=== PATIENT | male | born 1995 | race Caucasian/White ===

== ENCOUNTER 2024-04-16 14:17 | Emergency (ER) | payer OTHER ==
--- NOTE | 2024-04-16 14:43 | ED ---
General Adult HPI - General Source: patient, RN notes reviewed Mode of arrival: ambulatory Limitations: no limitations <Dagmar Calvo - Last Filed: 04/16/24 14:41> <Carlos Bean - Last Filed: 04/16/24 17:38> - General Chief complaint: Recheck/Abnormal Lab/Rx Stated complaint: Chest pain,Detox issue Time Seen by Provider: 04/16/24 14:41 - History of Present Illness Initial comments: Quick Note: This is a 28-year-old male who presents to the emergency department for concerns of problems related to detox. Patient used methadone for a long period of time and 36 hours ago he was started on Suboxone. He since had chest pain, states that he does not feel well, and has not been able to sleep. Patient is worried he may be having a reaction to the Suboxone and that they may have started him on it too soon. (Dagmar Calvo) Dictation was produced using [employer]elli[employer] dictation software. please excuse any grammatical, word or spelling errors. Chief Complaint: 28-year-old male presents emergency department with insomnia and malaise History of Present Illness: Patient 28-year-old male he seen a recovery clinic and was taken off methadone placed on Suboxone. Patient states that he feels horrible. States that he has vague complaints of malaise and feeling of impending doom. Patient does take Klonopin daily. He has been on Klonopin for several years. Patient has no pain complaints. The ROS documented in this emergency department record has been reviewed and confirmed by me. Those systems with pertinent positive or negative responses have been documented in the HPI. All other systems are other negative and/or noncontributory. (Carlos Bean) - Related Data Allergies Allergy/AdvReac Type Severity Reaction Status Date / Time No Known Allergies Allergy Verified 04/16/24 15:15 Review of Systems ROS Other: All systems not noted in ROS Statement are negative. <Dagmar Calvo - Last Filed: 04/16/24 14:41> ROS Other: All systems not noted in ROS Statement are negative. <Carlos Bean - Last Filed: 04/16/24 17:38> ROS Statement: Those systems with pertinent positive or pertinent negative responses have been documented in the HPI. General Exam <Dagmar Calvo - Last Filed: 04/16/24 14:41> <Carlos Bean - Last Filed: 04/16/24 17:38> - General Exam Comments Initial Comments: Visual Physical Exam Vital signs reviewed General: Well-appearing, nontoxic, no acute distress. Head: Normocephalic, atraumatic Eyes: PERRLA, EOMI ENT: Airway patent Chest: Nonlabored breathing Skin: No visual rash, normal skin tone Neuro: Alert and oriented 3 Musculoskeletal: No gross abnormalities (Dagmar Calvo) PHYSICAL EXAM: General Impression: Alert and oriented x3, not in acute distress HEENT: Normocephalic atraumatic, extra-ocular movements intact, pupils equal and reactive to light bilaterally, mucous membranes moist. Cardiovascular: Heart regular rate and rhythm Chest: Able to complete full sentences, no retractions, no tachypnea Abdomen: abdomen soft, non-tender, non-distended, no organomegaly Musculoskeletal: Pulses present and equal in all extremities, no peripheral edema Motor: no focal deficits noted Neurological: CN II-XII grossly intact, no focal motor or sensory deficits noted Skin: diffuse piloerection (Carlos Bean) Course Vital Signs 04/16/24 15:11 Temperature 98.5 F Pulse Rate 96 Respiratory 20 Rate Blood Pressure 112/76 O2 Sat by Pulse 99 Oximetry Medical Decision Making <Dagmar Calvo - Last Filed: 04/16/24 14:41> - Lab Data Result diagrams: 04/16/24 16:29 04/16/24 16:29 <Carlos Bean - Last Filed: 04/16/24 17:38> - Medical Decision Making I performed the QuickNote portion of this chart. Signed Dagmar Calvo PA-C. (Dagmar Calvo) Was pt. sent in by a medical professional or institution ([facility]ANETTE Westbrook, PERFORMANCE MANAGER, urgent care, hospital, or usp...) When possible be specific @ -No Did you speak to anyone other than the patient for history (EMS, parent, family, police, friend...)? What history was obtained from this source @ -No Did you review nursing and triage notes (agree or disagree)? Why? @ -I reviewed and agree with nursing and triage notes Were old charts reviewed (outside hosp., previous admission, EMS record, old EKG, old radiological studies, urgent care reports/EKG's, usp records)? Report findings @ -No old charts were reviewed Differential Diagnosis (chest pain, altered mental status, abdominal pain women, abdominal pain men, vaginal bleeding, musculoskeletal, weakness, fever, dyspnea, syncope, headache, dizziness, GI bleed, back pain, seizure, CVA, palpatations, mental health)? @ -Differential Weakness: Hypoglycemia, shock, sepsis, hyponatremia, anemia, infection, MT, ETOH, adverse medicine reaction, overdose, stroke, this is not meant to be an all-inclusive list. EKG interpreted by me (3pts min.). @ -See above X-rays interpreted by me (1pt min.). @ -Chest x-ray shows no acute processes. CT interpreted by me (1pt min.). @ -None done U/S interpreted by me (1pt. min.). @ -None done What testing was considered but not performed or refused? (CT, X-rays, U/S, labs)? Why? @ -None What meds were considered but not given or refused? Why? @ -None Did you discuss the management of the patient with other professionals (professionals i.e. , PA, PERFORMANCE MANAGER, lab, RT, psych nurse, secondary social studies teacher, helium arc welder, teacher, light armored vehicle officer, senior case manager)? Give summary @ -No Was smoking cessation discussed for >3mins.? @ -No Was critical care preformed (if so, how long)? @ -No Were there social determinants of health that impacted care today? How? (Homelessness, low income, unemployed, alcoholism, drug addiction, transportation, low edu. Level, literacy, decrease access to med. care, [facility], rehab)? @ -No Was there de-escalation of care discussed even if they declined (Discuss DNR or withdrawal of care, Hospice)? DNR status @ -No What co-morbidities impacted this encounter? (DM, HTN, Smoking, COPD, CAD, Cancer, CVA, ARF, Chemo, Hep., AIDS, mental health diagnosis, sleep apnea, morbid obesity)? @ -None Was patient admitted / discharged? Hospital course, mention meds given and route, prescriptions, significant lab abnormalities, going to OR and other pertinent info. @ -28-year-old male presents emergency department opiate withdrawals. Vital signs stable. Physical examination shows well-appearing male. Patient in no acute distress. Laboratory evaluation is unremarkable. Treated with 2 mg of Ativan. States that his symptoms feel improved. Patient told to follow-up with his methadone/Suboxone clinic for further care. He is encouraged to be admitted to [facility] for more assistance. Undiagnosed new problem with uncertain prognosis? @ -No Drug Therapy requiring intensive monitoring for toxicity (Heparin, Nitro, Insulin, Cardizem)? @ -No Were any procedures done? @ -No Diagnosis/symptom? Acute, or Chronic, or Acute on Chronic? Uncomplicated (without systemic symptoms) or Complicated (systemic symptoms)? @ -Opiate withdrawal Side effects of treatment? @ -No Exacerbation, Progression, or Severe Exacerbation? @ -No Poses a threat to life or bodily function? How? (Chest pain, [place], [place], pneumonia, PE, COPD, DKA, ARF, appy, cholecystitis, CVA, Diverticulitis, Homicidal, Suicidal, threat to staff... and all critical care pts) @ -No (Carlos Bean) - Lab Data Lab Results 04/16/24 04/16/24 04/16/24 Range/Units 16:29 16:29 16:29 WBC 9.2 (3.8-10.6) k/uL RBC 5.28 (4.30-5.90) m/uL Hgb 15.3 (13.0-17.5) gm/dL Hct 47.0 (39.0-53.0) % MCV 89.0 (80.0-100.0) fL MCH 29.0 (25.0-35.0) pg MCHC 32.5 (31.0-37.0) g/dL RDW 12.2 (11.5-15.5) % Plt Count 231 (150-450) k/uL MPV 9.0 Neutrophils % 66 % Lymphocytes % 26 % Monocytes % 6 % Eosinophils % 0 % Basophils % 0 % Neutrophils # 6.1 (1.3-7.7) k/uL Lymphocytes # 2.4 (1.0-4.8) k/uL Monocytes # 0.5 (0-1.0) k/uL Eosinophils # 0.0 (0-0.7) k/uL Basophils # 0.0 (0-0.2) k/uL PT 11.6 (10.0-12.5) sec INR 1.1 (<1.2) APTT 26.0 (22.0-30.0) sec Sodium (137-145) mmol/L Potassium (3.5-5.1) mmol/L Chloride (98-107) mmol/L Carbon Dioxide (22-30) mmol/L Anion Gap mmol/L BUN (9-20) mg/dL Creatinine (0.66-1.25) mg/dL Est GFR (CKD-EPI)AfAm (>60 ml/min/1.73 sqM) Est GFR (CKD-EPI)NonAf (>60 ml/min/1.73 sqM) Glucose (74-99) mg/dL Calcium (8.4-10.2) mg/dL Magnesium (1.6-2.3) mg/dL Total Bilirubin (0.2-1.3) mg/dL AST (17-59) U/L ALT (4-49) U/L Alkaline Phosphatase (38-126) U/L Troponin I (0.000-0.034) ng/mL Total Protein (6.3-8.2) g/dL Albumin (3.5-5.0) g/dL Lipase (23-300) U/L Urine Opiates Screen Not Detected (NotDetected) Ur Oxycodone Screen Not Detected (NotDetected) Urine Methadone Screen Not Detected (NotDetected) Ur Barbiturates Screen Not Detected (NotDetected) U Tricyclic Antidepress Not Detected (NotDetected) Ur Phencyclidine Scrn Not Detected (NotDetected) Ur Amphetamines Screen Not Detected (NotDetected) U Methamphetamines Scrn Not Detected (NotDetected) U Benzodiazepines Scrn Detected H (NotDetected) Urine Cocaine Screen Not Detected (NotDetected) U Marijuana (THC) Screen Detected H (NotDetected) Serum Alcohol mg/dL 04/16/24 04/16/24 Range/Units 16:29 16:29 WBC (3.8-10.6) k/uL RBC (4.30-5.90) m/uL Hgb (13.0-17.5) gm/dL Hct (39.0-53.0) % MCV (80.0-100.0) fL MCH (25.0-35.0) pg MCHC (31.0-37.0) g/dL RDW (11.5-15.5) % Plt Count (150-450) k/uL MPV Neutrophils % % Lymphocytes % % Monocytes % % Eosinophils % % Basophils % % Neutrophils # (1.3-7.7) k/uL Lymphocytes # (1.0-4.8) k/uL Monocytes # (0-1.0) k/uL Eosinophils # (0-0.7) k/uL Basophils # (0-0.2) k/uL PT (10.0-12.5) sec INR (<1.2) APTT (22.0-30.0) sec Sodium 140 (137-145) mmol/L Potassium 3.9 (3.5-5.1) mmol/L Chloride 102 (98-107) mmol/L Carbon Dioxide 33 H (22-30) mmol/L Anion Gap 5 mmol/L BUN 9 (9-20) mg/dL Creatinine 0.62 L (0.66-1.25) mg/dL Est GFR (CKD-EPI)AfAm >90 (>60 ml/min/1.73 sqM) Est GFR (CKD-EPI)NonAf >90 (>60 ml/min/1.73 sqM) Glucose 95 (74-99) mg/dL Calcium 9.7 (8.4-10.2) mg/dL Magnesium 2.2 (1.6-2.3) mg/dL Total Bilirubin 1.3 (0.2-1.3) mg/dL AST 20 (17-59) U/L ALT 14 (4-49) U/L Alkaline Phosphatase 63 (38-126) U/L Troponin I <0.012 (0.000-0.034) ng/mL Total Protein 7.3 (6.3-8.2) g/dL Albumin 4.9 (3.5-5.0) g/dL Lipase 102 (23-300) U/L Urine Opiates Screen (NotDetected) Ur Oxycodone Screen (NotDetected) Urine Methadone Screen (NotDetected) Ur Barbiturates Screen (NotDetected) U Tricyclic Antidepress (NotDetected) Ur Phencyclidine Scrn (NotDetected) Ur Amphetamines Screen (NotDetected) U Methamphetamines Scrn (NotDetected) U Benzodiazepines Scrn (NotDetected) Urine Cocaine Screen (NotDetected) U Marijuana (THC) Screen (NotDetected) Serum Alcohol <10 mg/dL Disposition <Dagmar Calvo - Last Filed: 04/16/24 14:41> Is patient prescribed a controlled substance at d/c from ED?: No Time of Disposition: 17:38 <Carlos Bean - Last Filed: 04/16/24 17:38> Clinical Impression: Opiate withdrawal Disposition: HOME SELF-CARE Condition: Good Instructions (If sedation given, give patient instructions): Opioid Withdrawal (ED) Referrals: Jermaine Torres MD [Primary Care Provider] - 1-2 days
[2024-04-16 15:54] VITALS: TEMP 98.5
[2024-04-16] MEDS: LORazepam 2 MG/ML INJ IM STA (16:38)
[2024-04-16 16:50] LABS: Basophils % (A) 0 %; Eosinophils % (A) 0 %; HGB 15.3 gm/dL (13.0-17.5); Lymphocytes # (A) 2.4 k/uL (1.0-4.8); Lymphocytes % (A) 26 %; MCHC 32.5 g/dL (31.0-37.0); Monocytes # (A) 0.5 k/uL (0-1.0); Monocytes % (A) 6 %; Neutrophils # (A) 6.1 k/uL (1.3-7.7); Neutrophils % (A) 66 %; Platelet Count 231 k/uL (150-450); RBC 5.28 m/uL (4.30-5.90); RDW 12.2 % (11.5-15.5); WBC 9.2 k/uL (3.8-10.6)
--- NOTE | 2024-04-16 16:51 | XR ---
EXAMINATION TYPE: XR chest 2V DATE OF EXAM: 04/16/2024 COMPARISON: None INDICATION: Chest pain TECHNIQUE: Frontal and lateral views of the chest are obtained. FINDINGS: The heart size is normal. The pulmonary vasculature is normal. The lungs are clear. IMPRESSION: 1. No acute pulmonary process.
[2024-04-16 16:57] LABS: ALT 14 U/L (4-49); AST 20 U/L (17-59); African American GFR (CKD) >90 (>60 ml/min/1.73 sqM); Albumin 4.9 g/dL (3.5-5.0); Alcohol <10 mg/dL; Alkaline Phosphatase 63 U/L (38-126); Anion Gap 5 mmol/L; Blood Urea Nitrogen 9 mg/dL (9-20); Calcium 9.7 mg/dL (8.4-10.2); Carbon Dioxide 33 mmol/L (22-30); Chloride 102 mmol/L (98-107); Glucose 95 mg/dL (74-99); Lipase 102 U/L (23-300); Magnesium 2.2 mg/dL (1.6-2.3); Non-African American GFR(CKD) >90 (>60 ml/min/1.73 sqM); Potassium 3.9 mmol/L (3.5-5.1); Sodium 140 mmol/L (137-145); Total Bilirubin 1.3 mg/dL (0.2-1.3); Total Protein 7.3 g/dL (6.3-8.2)
[2024-04-16 16:58] LABS: Amphetamine Screen,Urine Not Detected (NotDetected); Barbiturate Screen,Urine Not Detected (NotDetected); Benzodiazepines Screen,Urine Detected (NotDetected); Cocaine Screen,Urine Not Detected (NotDetected); Methadone Screen, Urine Not Detected (NotDetected); Opiate Screen,Urine Not Detected (NotDetected); Oxycodone Screen, Urine Not Detected (NotDetected); Phencyclidine Screen,Urine Not Detected (NotDetected); Tricyclic Antidepressant,Urine Not Detected (NotDetected); Urn Cannabinoid Scrn Detected (NotDetected)
[2024-04-16 17:01] LABS: INR 1.1 (<1.2); Prothrombin Time 11.6 sec (10.0-12.5)
[2024-04-16 18:23] VITALS: BP 131/82; PULSE 67; RESP 16
== END 2024-04-16 18:07 | disposition home or self-care (01) ==
LOC: EC 14:17
DX: F11.23 Opioid dependence with withdrawal (principal)
CPT/HCPCS: 36415; 93005; 80053; 83690; 83735; 84484; 85025; 85610; 85730; 80306; 71046; 99285; 96372; G0480; J2060; 80320

== ENCOUNTER 2024-06-04 10:48 | Inpatient (IN) | payer MEDICAID, OTHER ==
--- NOTE | 2024-06-04 12:07 | ED ---
General Adult HPI - General Chief complaint: Psychiatric Symptoms Stated complaint: Mental Health Time Seen by Provider: 06/04/24 11:00 Source: patient, RN notes reviewed, old records reviewed Mode of arrival: ambulatory Limitations: no limitations - History of Present Illness Initial comments: This is a 28-year-old male who presents to the emergency department because he is suicidal. Patient states he tried to choke himself with a belt but it was unsuccessful. Patient states he has been depressed ever since he did a rapid detox from methadone. Patient states he has a history of abusing narcotics and benzodiazepines. Patient states rapid detox occurred about 2 weeks ago and ever since then has been more depressed and getting more depressed. Patient denies any physical complaints today. - Related Data Allergies Allergy/AdvReac Type Severity Reaction Status Date / Time codeine Allergy Rash/Hives Verified 06/04/24 10:55 Review of Systems ROS Statement: Those systems with pertinent positive or pertinent negative responses have been documented in the HPI. ROS Other: All systems not noted in ROS Statement are negative. Past Medical History Past Medical History: Asthma History of Any Multi-Drug Resistant Organisms: None Reported Past Surgical History: No Surgical Hx Reported Past Psychological History: Anxiety, Depression, Panic Disorder Smoking Status: Current every day smoker, Vaper Past Alcohol Use History: None Reported Past Drug Use History: Marijuana General Exam - General Exam Comments Initial Comments: GENERAL: Patient is well-developed and well-nourished. Patient is nontoxic and well- hydrated and is in mild distress. ENT: Neck is soft and supple. No significant lymphadenopathy is noted. Oropharynx is clear. Moist mucous membranes. Neck has full range of motion without eliciting any pain. EYES: The sclera were anicteric and conjunctiva were pink and moist. Extraocular movements were intact and pupils were equal round and reactive to light. Eyelids were unremarkable. PULMONARY: Unlabored respirations. Good breath sounds bilaterally. No audible rales rhonchi or wheezing was noted. CARDIOVASCULAR: Patient is tachycardic at about 110 beats a minute ABDOMEN: Soft and nontender with normal bowel sounds. SKIN: Skin is clear with no lesions or rashes and otherwise unremarkable. NEUROLOGIC: Patient is alert and oriented x3. Cranial nerves II through XII are grossly intact. Motor and sensory are also intact. Normal speech, volume and content. Symmetrical smile. MUSCULOSKELETAL: Normal extremities with adequate strength and full range of motion. LYMPHATICS: No significant lymphadenopathy is noted PSYCHIATRIC: Patient seems mildly anxious Limitations: no limitations Course Vital Signs 06/04/24 10:51 Temperature 98.2 F Pulse Rate 120 H Respiratory 20 Rate Blood Pressure 154/82 O2 Sat by Pulse 99 Oximetry Medical Decision Making - Medical Decision Making Was pt. sent in by a medical professional or institution ([facility]ETTE Westbrook, TELETYPESETTER OPERATOR, urgent care, hospital, or fpc...) When possible be specific @ -No Did you speak to anyone other than the patient for history (EMS, parent, family, police, friend...)? What history was obtained from this source @ -No Did you review nursing and triage notes (agree or disagree)? Why? @ -I reviewed and agree with nursing and triage notes Were old charts reviewed (outside hosp., previous admission, EMS record, old EKG, old radiological studies, urgent care reports/EKG's, fpc records)? Report findings @ -No old charts were reviewed Differential Diagnosis? @ -Differential Mental Health Depression, anxiety, bipolar, psychosis, schizophrenia, borderline personality, situational depression, adjustment disorder, behavioral disorder, brain tumor, malingering, substance abuse, encephalopathy, medication reaction, dementia, hypothyroidism, degenerative neurologic disorder, lupus.... This is not meant to be all-inclusive list EKG interpreted by me (3pts min.). @ -As above X-rays interpreted by me (1pt min.). @ -None done CT interpreted by me (1pt min.). @ -None done U/S interpreted by me (1pt. min.). @ -None done What testing was considered but not performed or refused? (CT, X-rays, U/S, labs)? Why? @ -None What meds were considered but not given or refused? Why? @ -None Did you discuss the management of the patient with other professionals (professionals i.e. DANETTE Westbrook, TELETYPESETTER OPERATOR, lab, RT, psych nurse, social services specialist, weather reporter, teacher, county records management officer, immigration case worker)? Give summary @ -I spoke with the EPS nurse and he had already spoken with the psychiatrist and they would like the patient to be an inpatient patient was in agreement and signed himself and Was smoking cessation discussed for >3mins.? @ -No Was critical care preformed (if so, how long)? @ -35 minutes Were there social determinants of health that impacted care today? How? (Homelessness, low income, unemployed, alcoholism, drug addiction, transportation, low edu. Level, literacy, decrease access to med. care, retirement, rehab)? @ -No Was there de-escalation of care discussed even if they declined (Discuss DNR or withdrawal of care, Hospice)? DNR status @ -No What co-morbidities impacted this encounter? (DM, HTN, Smoking, COPD, CAD, Cancer, CVA, ARF, Chemo, Hep., AIDS, mental health diagnosis, sleep apnea, morbid obesity)? @ -None Was patient admitted / discharged? Hospital course, mention meds given and route, prescriptions, significant lab abnormalities, going to OR and other pertinent info. @ -Patient had no medical problems. Patient did want to be admitted to the psychiatric floor EPS agreed the psychiatrist agreed and patient will be admitted as depression and suicidal attempt Undiagnosed new problem with uncertain prognosis? @ -No Drug Therapy requiring intensive monitoring for toxicity (Heparin, Nitro, Insulin, Cardizem)? @ -No Were any procedures done? @ -No Diagnosis/symptom? @ -Depression Acute, or Chronic, or Acute on Chronic? @ -Acute Uncomplicated (without systemic symptoms) or Complicated (systemic symptoms)? @ -Complicated Side effects of treatment? @ -No Exacerbation, Progression, or Severe Exacerbation? @ -No Poses a threat to life or bodily function? How? (Chest pain, [place], [place], pneumonia, PE, COPD, DKA, ARF, appy, cholecystitis, CVA, Diverticulitis, Homicidal, Suicidal, threat to staff... and all critical care pts) @ -Yes this can lead to depression and suicide attempt Diagnosis/symptom? @ -Suicide attempt Acute, or Chronic, or Acute on Chronic? @ -Acute Uncomplicated (without systemic symptoms) or Complicated (systemic symptoms)? @ -Complicated Side effects of treatment? @ -None Exacerbation, Progression, or Severe Exacerbation] @ -No Poses a threat to life or bodily function? @ -Yes this could lead to Disposition Clinical Impression: Depression, Suicide attempt Disposition: ADMITTED IP TO THIS HOSP Referrals: Jermaine Torres MD [Primary Care Provider] - 1-2 days Time of Disposition: 13:25
[2024-06-04 13:21] LABS: Amphetamine Screen,Urine Not Detected (NotDetected); Barbiturate Screen,Urine Not Detected (NotDetected); Benzodiazepines Screen,Urine Detected (NotDetected); Cocaine Screen,Urine Not Detected (NotDetected); Methadone Screen, Urine Not Detected (NotDetected); Opiate Screen,Urine Not Detected (NotDetected); Oxycodone Screen, Urine Not Detected (NotDetected); Phencyclidine Screen,Urine Not Detected (NotDetected); Tricyclic Antidepressant,Urine Not Detected (NotDetected); Urn Cannabinoid Scrn Detected (NotDetected)
[2024-06-04] MEDS ORDERED: IBUPROFEN 600 MG TAB PO PRN (16:39)
[2024-06-04] MEDS ORDERED: MAGNESIUM HYDROXIDE 2,400 MG/30 ML CUP PO PRN (16:39)
[2024-06-04] MEDS ORDERED: HALOPERIDOL LACTATE 5 MG/ML 1 ML VIAL IM PRN (16:39)
[2024-06-04] MEDS ORDERED: ACETAMINOPHEN TAB 325 MG TAB PO PRN (16:39)
[2024-06-04] MEDS ORDERED: haloperidoL 5 MG TAB PO PRN (16:39)
[2024-06-04 16:52] LABS: Appearance,Urine Clear (Clear); Bilirubin,Urine Negative (Negative); Blood,Urine Negative (Negative); Color,Urine Colorless; Glucose,Urine (UA) Negative (Negative); Ketones,Urine Negative (Negative); Leukocyte Esterase,Urine Negative (Negative); Nitrite,Urine Negative (Negative); Protein,Urine Negative (Negative); Specific Gravity,Urine 1.006 (1.001-1.035); Urobilinogen,Urine <2.0 mg/dL (<2.0)
[2024-06-04] MEDS: MAG HYDROX/AL HYDROX/SIMETH 355 ML BOTTLE PO PRN (18:40)
[2024-06-04] MEDS: NALTREXONE HCL 50 MG TAB PO SCH (20:05)
[2024-06-04] MEDS: LORazepam 1 MG TAB PO PRN (21:52)
--- NOTE | 2024-06-04 21:54 | P.MDCNMH ---
<James Young - Last Filed: 06/04/24 21:59> History of Present Illness H&P Date: 06/04/24 Chief Complaint: Medical evaluation Patient is a 28-year-old male with a history of psychiatric disorder is seen for medical evaluation. Patient states that he had a rapid detox from methadone about 2 weeks ago and ever since then has had constant frontal headache associated mild blurry vision, chest pain and shortness of breath. He also reports abdominal discomfort with poor bowel movements but denies urinary issues. He is also complaining of generalized malaise with pain in multiple joints both upper and lower extremities. Also reports mild lower back pain which is from 5 to 6 years, not getting worse. He has tried pain medication such as Tylenol and is mildly effective. Patient has a history of seizure and his last episode was 6 years ago. Patient denies history of CVA and or CVA. Patient denies history of COPD or asthma. Vitals: Tmax 98.2 F, heart rate 109, blood pressure 133/84, oxygen saturation 99% on room air. Review of systems: Pertinent positives and negatives as discussed in HPI, a complete review of systems was performed and all other systems are negative. Social history: Tobacco: Smokes vape Alcohol: Occasionally Recreational drugs: Methadone Travel: None Occupation: None Family History: Noncontributory Physical examination: Vital signs reviewed General: non toxic, no distress, appears at stated age, normal weight Derm: no unusual rashes/lesions, warm Head: atraumatic, normocephalic, symmetric Eyes: EOMI, no lid lag, anicteric sclera, pupils equal round reactive to light ENT: Nose and ears atraumatic Neck: No cervical lymphadenopathy, trachea midline, supple Mouth: no lip lesion, mucus membranes moist Cardiovascular: S1S2 reg, no murmur, positive dorsalis pedis pulse bilateral, no edema Lungs: CTA bilateral, no rhonchi, no rales, no accessory muscle use Abdominal: soft, nontender to palpation, no guarding Ext: muscle strength 5 out of 5 in all 4 extremities grossly, no gross muscle atrophy, no contractures, Neuro: CN II-XI grossly intact, no gross focal neuro deficits Psych: Alert, oriented, appropriate affect Assessment/Plan: 28-year-old male with history of psychiatric disorder is seen for medical evaluation. Patient states he reports constant frontal headache, mild chest pain, mild shortness of breath, abdominal discomfort, generalized aches and pain in both upper and lower extremities. The symptoms started after he had meth adone detox 2 weeks ago. His symptoms likely from withdrawal effect. -Withdrawal effect For headache and generalized pain continue with acetaminophen 650 mg p.o. every 4 hours and ibuprofen 600 mg p.o. every 6 hours as needed Continue with Ativan as needed Heart rate is 109 Continue to monitor his vitals including blood pressure and heart rate Follow-up on TSH CBC and CMP has been ordered, follow-up on results For constipation continue with magnesium hydroxide 2400 mg p.o. daily. -Psychiatric disorders Management as per psychiatrist Past Medical History Past Medical History: Asthma History of Any Multi-Drug Resistant Organisms: None Reported Past Surgical History: No Surgical Hx Reported Past Anesthesia/Blood Transfusion Reactions: No Reported Reaction Smoking Status: Current every day smoker, Vaper Medications and Allergies Home Medications Medication Instructions Recorded Confirmed Type Dicyclomine [Bentyl] 20 mg PO BID PRN 06/04/24 06/11/24 History Mirtazapine [Remeron] 15 mg PO HS PRN 06/04/24 06/11/24 History Naltrexone HCl [Revia] 50 mg PO HS 06/04/24 06/11/24 History Omeprazole 40 mg PO DAILY PRN 06/04/24 06/11/24 History Ondansetron Odt [Zofran Odt] 8 mg PO Q4H PRN 06/04/24 06/11/24 History Pepto-Bismol Tab 2 tab PO DIRECTED PRN MDD 16 06/04/24 06/11/24 History tabs Promethazine [Phenergan] 25 mg PO Q8H PRN 06/04/24 06/11/24 History Sucralfate [Carafate] 1 gm PO AC-BID 06/04/24 06/11/24 History clonazePAM [KlonoPIN] 1 mg PO TID PRN 06/04/24 06/11/24 History rOPINIRole HCL [Requip] 0.5 - 1 mg PO TID PRN 06/04/24 06/11/24 History Gabapentin [Neurontin] 300 mg PO TID 06/05/24 06/11/24 History Naltrexone Microspheres [Vivitrol] 380 mg IM 06/09/24 History lamoTRIgine [LaMICtal] 25 mg PO DAILY tab 06/11/24 06/11/24 Rx Allergies Allergy/AdvReac Type Severity Reaction Status Date / Time codeine Allergy Rash/Hives Verified 06/11/24 20:36 Physical Exam Vitals: Vital Signs Temp Pulse Pulse Resp BP BP Pulse Ox 06/04/24 17:11 97.6 F 109 H 16 133/84 06/04/24 10:51 98.2 F 120 H 20 154/82 99 Intake and Output 06/04/24 06/04/24 06/04/24 06:59 14:59 22:59 Other: Weight 58.967 kg 59.879 kg Results Labs: Abnormal Lab Results - Last 24 Hours (Table) 06/04/24 Range/Units 12:00 U Benzodiazepines Scrn Detected H (NotDetected) U Marijuana (THC) Screen Detected H (NotDetected) <Emory Chapin - Last Filed: 06/12/24 20:38> History of Present Illness I have seen and evaluated the patient today. I Discussed the case with the resident and agree with the resident's findings I edited the assessment and plan as necessary as documented in the resident's note. Physical Exam Vitals: Vital Signs Temp Pulse Pulse Resp BP BP Pulse Ox 06/04/24 17:11 97.6 F 109 H 16 133/84 06/04/24 10:51 98.2 F 120 H 20 154/82 99 Intake and Output 06/04/24 06/04/24 06/05/24 14:59 22:59 06:59 Other: Weight 58.967 kg 59.879 kg Cranial Nerve Examination - Cranial Nerves Cranial Nerve II- Optic: Intact Cranial Nerve III- Oculomotor: Intact Cranial Nerve IV- Trochlear: Intact Cranial Nerve V- Trigeminal: Intact Cranial Nerve - Abducens: Intact Cranial Nerve VII- Facial: Intact Cranial Nerve VIII- Auditory: Intact Cranial Nerve IX- Glossopharyngeal: Intact Cranial Nerve X- Vagus: Intact Cranial Nerve XI- Accessory: Intact Cranial Nerve XII- Hypoglossal: Intact Results CBC & Chem 7: 06/05/24 05:53 06/05/24 05:53 Labs: Abnormal Lab Results - Last 24 Hours (Table) 06/04/24 Range/Units 12:00 U Benzodiazepines Scrn Detected H (NotDetected) U Marijuana (THC) Screen Detected H (NotDetected)
[2024-06-05 06:23] LABS: Basophils # (A) 0.1 k/uL (0-0.2); Basophils % (A) 1 %; Eosinophils % (A) 0 %; HGB 16.8 gm/dL (13.0-17.5); Lymphocytes # (A) 2.9 k/uL (1.0-4.8); Lymphocytes % (A) 29 %; MCH 30.5 pg (25.0-35.0); MCHC 33.5 g/dL (31.0-37.0); MCV 90.8 fL (80.0-100.0); Mean Platelet Volume 8.8; Monocytes # (A) 0.7 k/uL (0-1.0); Monocytes % (A) 7 %; Neutrophils # (A) 6.1 k/uL (1.3-7.7); Neutrophils % (A) 61 %; Platelet Count 263 k/uL (150-450); RDW 12.6 % (11.5-15.5)
[2024-06-05 06:29] LABS: ALT 18 U/L (4-49); AST 22 U/L (17-59); African American GFR (CKD) >90 (>60 ml/min/1.73 sqM); Albumin 4.6 g/dL (3.5-5.0); Alkaline Phosphatase 52 U/L (38-126); Anion Gap 5 mmol/L; Bilirubin, Delta 0.3 mg/dL (0.0-0.2); Bilirubin,Unconjugated 1.5 mg/dL (0.0-1.1); Blood Urea Nitrogen 11 mg/dL (9-20); Carbon Dioxide 34 mmol/L (22-30); Chloride 101 mmol/L (98-107); Glucose 104 mg/dL (74-99); Non-African American GFR(CKD) >90 (>60 ml/min/1.73 sqM); Potassium 4.2 mmol/L (3.5-5.1); Sodium 140 mmol/L (137-145); Total Bilirubin 1.8 mg/dL (0.2-1.3); Total Protein 6.7 g/dL (6.3-8.2)
[2024-06-05] MEDS: NICOTINE 14MG/24HR PATCH TRANSDERM SCH (08:51)
[2024-06-05 09:37] LABS: Chol/HDL Ratio 2.42 Ratio; LDL Cholesterol,Calculated 82.3 mg/dL (0.0-131.0); VLDL Calculation 13.34 mg/dL (5.00-40.00)
--- NOTE | 2024-06-05 12:04 | P.HP ---
Psychiatric H&P - . H&P Date: 06/05/24 History & Physical: Allergies Allergy/AdvReac Type Severity Reaction Status Date / Time codeine Allergy Rash/Hives Verified 06/04/24 13:41 gabapentin AdvReac anxiety Verified 06/04/24 13:41 Vital Signs Temp 97.9 F 06/05/24 06:13 Pulse 71 06/05/24 06:13 Resp 20 06/05/24 06:13 BP 117/79 06/05/24 06:13 Pulse Ox 100 06/05/24 06:13 FiO2 Intake & Output 06/04/24 06/05/24 06/05/24 18:59 06:59 18:59 Weight 59.879 kg Laboratory Last Values WBC 10.0 k/uL (3.8-10.6) 06/05/24 05:53 RBC 5.50 m/uL (4.30-5.90) 06/05/24 05:53 Hgb 16.8 gm/dL (13.0-17.5) 06/05/24 05:53 Hct 50.0 % (39.0-53.0) 06/05/24 05:53 MCV 90.8 fL (80.0-100.0) 06/05/24 05:53 MCH 30.5 pg (25.0-35.0) 06/05/24 05:53 MCHC 33.5 g/dL (31.0-37.0) 06/05/24 05:53 RDW 12.6 % (11.5-15.5) 06/05/24 05:53 Plt Count 263 k/uL (150-450) 06/05/24 05:53 MPV 8.8 06/05/24 05:53 Neutrophils % 61 % 06/05/24 05:53 Lymphocytes % 29 % 06/05/24 05:53 Monocytes % 7 % 06/05/24 05:53 Eosinophils % 0 % 06/05/24 05:53 Basophils % 1 % 06/05/24 05:53 Neutrophils # 6.1 k/uL (1.3-7.7) 06/05/24 05:53 Lymphocytes # 2.9 k/uL (1.0-4.8) 06/05/24 05:53 Monocytes # 0.7 k/uL (0-1.0) 06/05/24 05:53 Eosinophils # 0.0 k/uL (0-0.7) 06/05/24 05:53 Basophils # 0.1 k/uL (0-0.2) 06/05/24 05:53 Sodium 140 mmol/L (137-145) 06/05/24 05:53 Potassium 4.2 mmol/L (3.5-5.1) 06/05/24 05:53 Chloride 101 mmol/L (98-107) 06/05/24 05:53 Carbon Dioxide 34 mmol/L (22-30) H 06/05/24 05:53 Anion Gap 5 mmol/L 06/05/24 05:53 BUN 11 mg/dL (9-20) 06/05/24 05:53 Creatinine 0.74 mg/dL (0.66-1.25) 06/05/24 05:53 Est GFR (CKD-EPI)AfAm >90 (>60 ml/min/1.73 sqM) 06/05/24 05:53 Est GFR (CKD-EPI)NonAf >90 (>60 ml/min/1.73 sqM) 06/05/24 05:53 Glucose 104 mg/dL (74-99) H 06/05/24 05:[address] Glu mg/dL 103 mg/dL 06/05/24 05:53 Hemoglobin A1c 5.2 % (<=6.0) 06/05/24 05:53 Calcium 10.0 mg/dL (8.4-10.2) 06/05/24 05:53 Total Bilirubin 1.8 mg/dL (0.2-1.3) H 06/05/24 05:53 Conjugated Bilirubin 0.0 mg/dL (0.0-0.3) 06/05/24 05:53 Unconjugated Bilirubin 1.5 mg/dL (0.0-1.1) H 06/05/24 05:53 Delta Bilirubin 0.3 mg/dL (0.0-0.2) H 06/05/24 05:53 AST 22 U/L (17-59) 06/05/24 05:53 ALT 18 U/L (4-49) 06/05/24 05:53 Alkaline Phosphatase 52 U/L (38-126) 06/05/24 05:53 Total Protein 6.7 g/dL (6.3-8.2) 06/05/24 05:53 Albumin 4.6 g/dL (3.5-5.0) 06/05/24 05:53 Triglycerides 66.70 mg/dL (0.00-149.00) 06/05/24 05:53 Cholesterol 163.00 mg/dL (0.00-200.00) 06/05/24 05:53 LDL Cholesterol, Calc 82.3 mg/dL (0.0-131.0) 06/05/24 05:53 VLDL Cholesterol, Calc 13.34 mg/dL (5.00-40.00) 06/05/24 05:53 HDL Cholesterol 67.40 mg/dL (40.00-60.00) H 06/05/24 05:53 Cholesterol/HDL Ratio 2.42 Ratio 06/05/24 05:53 TSH 0.085 mIU/L (0.465-4.680) L 06/05/24 05:53 Urine Color Colorless 06/04/24 12:00 Urine Appearance Clear (Clear) 06/04/24 12:00 Urine pH 7.0 (5.0-8.0) 06/04/24 12:00 Ur Specific [place] 1.006 (1.001-1.035) 06/04/24 12:00 Urine Protein Negative (Negative) 06/04/24 12:00 Urine Glucose (UA) Negative (Negative) 06/04/24 12:00 Urine Ketones Negative (Negative) 06/04/24 12:00 Urine Blood Negative (Negative) 06/04/24 12:00 Urine Nitrite Negative (Negative) 06/04/24 12:00 Urine Bilirubin Negative (Negative) 06/04/24 12:00 Urine Urobilinogen <2.0 mg/dL (<2.0) 06/04/24 12:00 Ur Leukocyte Esterase Negative (Negative) 06/04/24 12:00 Urine Opiates Screen Not Detected (NotDetected) 06/04/24 12:00 Ur Oxycodone Screen Not Detected (NotDetected) 06/04/24 12:00 Urine Methadone Screen Not Detected (NotDetected) 06/04/24 12:00 Ur Barbiturates Screen Not Detected (NotDetected) 06/04/24 12:00 U Tricyclic Antidepress Not Detected (NotDetected) 06/04/24 12:00 Ur Phencyclidine Scrn Not Detected (NotDetected) 06/04/24 12:00 Ur Amphetamines Screen Not Detected (NotDetected) 06/04/24 12:00 U Methamphetamines Scrn Not Detected (NotDetected) 06/04/24 12:00 U Benzodiazepines Scrn Detected (NotDetected) H 06/04/24 12:00 Urine Cocaine Screen Not Detected (NotDetected) 06/04/24 12:00 U Marijuana (THC) Screen Detected (NotDetected) H 06/04/24 12:00 SARS-CoV-2 (PCR) Not Detected (Not Detectd) 06/04/24 14:48 06/05/24 11:56 This is a psychiatric assessment on this 28-year-old male who was hospitalized after patient presents to the ER with suicidal ideations Following exam except from the assessment done in the ER: Patient is a 28-year-old male with a history of psychiatric disorder is seen for medical evaluation. Patient states that he had a rapid detox from methadone about 2 weeks ago and ever since then has had constant frontal headache associated mild blurry vision, chest pain and shortness of breath. He also reports abdominal discomfort with poor bowel movements but denies urinary issues. He is also complaining of generalized malaise with pain in multiple joints both upper and lower extremities. Also reports mild lower back pain which is from 5 to 6 years, not getting worse. He has tried pain medication such as Tylenol and is mildly effective. Patient has a history of seizure and his last episode was 6 years ago. Patient denies history of CVA and or CVA. Patient denies history of COPD or asthma. When seen today patient seems to be mainly focused on wanting to get his clonazepam Patient states that he was given lorazepam in the hospital and that he has a history of seizures Patient also complains of anxiety although he seems to be sedated with droopy eyelids and difficulty maintaining alertness Patient remains drug seeking He states that he has a long history of mental illness with several psychiatric hospitalizations in the past he states that he was detoxed from the methadone and that he has a history of using OxyContin and other tablets of opiates He states that he is unemployed and he currently lives with his family He admits that he was hospitalized due to suicidal ideations He states that he is currently unemployed He admits that he uses some alcohol as well as cannabis on a regular basis Past Medical History: Asthma History of Any Multi-Drug Resistant Organisms: None Reported Past Surgical History: No Surgical Hx Reported Past Psychological History: Anxiety, Depression, Panic Disorder Smoking Status: Current every day smoker, Vaper Past Alcohol Use History: None Reported Past Drug Use History: Marijuana OBJECTIVE: Mental status examination: OBJECTIVE: speech was appropriate -The conversation is coherent. -There are no abnormalities to the content of thoughts. -There are no abnormalities to the content of thought and no perceptual disturbances. -Fund of general knowledge is probably average. -pts MOOD IS blunted. -pts judgement and insight is fair -No suicidal or homicidal ideation. noted Mental Status Exam Behavior: cooperative, calm Patient however seems to be struggling to maintain alertness He showed psychomotor slowness Speech: fluent, clear, impoverished Perception: no hallucinations Cognition: alert, oriented to situation, oriented to time, oriented to place, oriented to person, memory intact, poor concentration and attention span Intelligence: average Memory: remote, recent Mood: euthymic Insight: Impaired Judgment: Impaired Thought Processes: Cisco but goal directed Thought Content: Drug seeking Diagnosis: Adjustment disorder with mixed emotional features Major depressive disorder recurrent with acute exacerbation Polysubstance use disorder that includes alcohol opiates Opiate use disorder chronic Plan: Admission recommendations: The patient has been hospitalized on the unit for further evaluation and treatment Therapy will be focused on providing supportive care and improving his coping abilities with a multimodal treatment Patient will also participate on the lopez activities Individual milieu group OT RT PT and pharmacotherapy Patient will be continued on his home medications at this time we will hold off on the clonazepam unless otherwise needed due to excessive sedation medical and health services manager on board for appropriate follow-up and placement recommendations if needed Approximate length of stay would be 7 to 10 days Patient also will be referred for substance use program including psychosocial support system like AA and NA for alcohol and substance use disorders Active Medications Generic Name Dose Route Start Last Admin Trade Name Freq PRN Reason Stop Dose Admin Acetaminophen 650 mg 06/04/24 16:39 Acetaminophen Tab 325 Mg Tab PO Q4HR PRN Mild Pain (Scale 1 to 3) Al Hydroxide/Mg Hydroxide 30 ml 06/04/24 16:39 06/04/24 18:40 Mag Hydrox/Al Hydrox/Simeth 355 Ml Bottle PO 30 ml Q4HR PRN Administration GI Upset Haloperidol 5 mg 06/04/24 16:39 Haloperidol 5 Mg Tab PO Q4HR PRN Agitation Haloperidol Lactate 5 mg 06/04/24 16:39 Haloperidol Lactate 5 Mg/Ml 1 Ml Vial IM Q6HR PRN Severe Agitation Hydroxyzine HCl 50 mg 06/04/24 16:39 Hydroxyzine Hcl 25 Mg Tab PO QID PRN Anxiety Ibuprofen 600 mg 06/04/24 16:39 Ibuprofen 600 Mg Tab PO Q6HR PRN Moderate Pain (Scale 4 to 6) Lorazepam 2 mg 06/04/24 16:39 06/04/24 21:52 Lorazepam 1 Mg Tab PO 2 mg Q4HR PRN Administration Agitation Lorazepam 2 mg 06/04/24 16:39 Lorazepam 2 Mg/Ml Inj IM Q6HR PRN Severe Agitation Magnesium Hydroxide 2,400 mg 06/04/24 16:39 Magnesium Hydroxide 2,400 Mg/30 Ml Cup PO DAILY PRN Constipation Naltrexone HCl 50 mg 06/04/24 21:00 06/04/24 20:05 Naltrexone Hcl 50 Mg Tab PO 50 mg HS HANS Administration Nicotine 1 patch 06/05/24 09:00 06/05/24 08:51 Nicotine 14mg/24hr Patch TRANSDERM 1 patch DAILY HANS Administration
--- NOTE | 2024-06-05 15:04 | P.PN ---
Subjective Progress Note Date: 06/05/24 Patient is a 28-year-old male admitted to the mental health unit with adjustment disorder with mixed features and major depressive disorder. Patient seen and examined at bedside. He complains of palpitations, midsternal chest pain without radiation, feeling very anxious. He also endorses diarrhea and muscle aches. These have been present since being taken off of Suboxone. Chart review and discussion with nurses reveals that patient was seen in the ER in March 2024 with complaints of opiate withdrawal. He had been on a methadone for 2 years and was then placed on Suboxone which he felt was too soon. He recently has been hospitalized for withdrawal of methadone. He reports receiving Vivitrol 2-1/2 weeks ago and taking oral naltrexone. He also has been on benzodiazepines and gabapentin for years. Vital signs reviewed General: Nontoxic, no distress, appears at stated age, no diaphoresis Cardiovascular: S1S2 tachy, no murmur Lungs: CTA bilateral, no rhonchi, no rales, no accessory muscle use Abdominal: Soft, nontender to palpation, no guarding Ext: No gross muscle atrophy, no edema b/l lower extremities, no contractures Neuro: CN II-XI grossly intact, no focal neuro deficits Psych: Alert, oriented, appropriate affect Assessment/Plan: Palpitations/Chest pain Anxiety Opiate and benzo withdrawal -EKG obtained which shows sinus tachycardia at 132 without ischemic changes. Anticipate related to withdrawal of opiates and/or benzodiazepines. Patient received Ativan 2 mg oral at 1229. Will repeat Ativan 2 mg IM x 1 as patient will be resistant to any opiate use. Patient and nursing will encourage oral fluids of 1 L in the next half an hour. If patient is unable to tolerate this and has tachycardia will start IV to give 1 L bolus. Start Catapres 0.1 mg 3 times daily as needed for withdrawal symptoms. Resume patient's home gabapentin 300 mg p.o. 3 times daily. -Low risk of underlying coronary artery disease as patient without hypertension, dyslipidemia, diabetes, or obesity. Will not draw troponins at this time but if the chest pain persists after heart rate is improved could consider troponin. Nursing encouraged to call with recurrent concerns. -Labs reviewed from this morning CBC normal, basic metabolic profile remarkable for bilirubin of 1.8 and TSH of 0.085. Check free T4. This dictation was prepared using dragon medical voice recognition software. Though every attempt is made to correct errors during dictation some may still exist. Objective - Vital Signs Vital signs: Vital Signs Temp 97.9 F 06/05/24 06:13 Pulse 156 H 06/05/24 13:36 Resp 19 06/05/24 13:36 BP 125/87 06/05/24 13:36 Pulse Ox 98 06/05/24 13:36 FiO2 Intake & Output 06/04/24 06/05/24 06/05/24 18:59 06:59 18:59 Weight 59.879 kg 59.879 kg - Labs CBC & Chem 7: 06/05/24 05:53 06/05/24 05:53 Labs: Abnormal Lab Results - Last 24 Hours (Table) 06/05/24 Range/Units 05:53 Carbon Dioxide 34 H (22-30) mmol/L Glucose 104 H (74-99) mg/dL Total Bilirubin 1.8 H (0.2-1.3) mg/dL Unconjugated Bilirubin 1.5 H (0.0-1.1) mg/dL Delta Bilirubin 0.3 H (0.0-0.2) mg/dL HDL Cholesterol 67.40 H (40.00-60.00) mg/dL TSH 0.085 L (0.465-4.680) mIU/L
[2024-06-05] MEDS: LORazepam 2 MG/ML INJ IM ONE (15:06)
[2024-06-05] MEDS: GABAPENTIN 300 MG CAP PO SCH (15:15)
[2024-06-05] MEDS: hydrOXYzine HCL 25 MG TAB PO PRN (21:20)
--- NOTE | 2024-06-06 08:50 | P.PN ---
Subjective Progress Note Date: 06/06/24 Subjective data: The patient was seen and chart was reviewed and case discussed with nursing staff Patient was seen in bed and was awake on approach and agreed to talk to this va underwriter Patient reports that he himself chose to go off the methadone because he felt that he needed a change He states that he just did not like the feeling and that it was slowing him down too much Patient now admits that he is having significant withdrawal symptoms and cravings When asked about Suboxone patient states that he will consider it He denies any suicidal ideations or plans Admits that he still feels quite depressed but denies any suicidal or homicidal ideations OBJECTIVE: speech was appropriate -The conversation is coherent. -There are no abnormalities to the content of thoughts. -There are no abnormalities to the content of thought and no perceptual disturbances. -Fund of general knowledge is probably average. -pts MOOD IS blunted. -pts judgement and insight is fair -No suicidal or homicidal ideation. noted Mental Status Exam Behavior: cooperative, calm Patient however seems to be struggling to maintain alertness He showed psychomotor slowness Speech: fluent, clear, impoverished Perception: no hallucinations Cognition: alert, oriented to situation, oriented to time, oriented to place, oriented to person, memory intact, poor concentration and attention span Intelligence: average Memory: remote, recent Mood: euthymic Insight: Improving Judgment: Improving Thought Processes: Riley but goal directed Thought Content: Appears depressed and withdrawn Diagnosis: Adjustment disorder with mixed emotional features Major depressive disorder recurrent with acute exacerbation Polysubstance use disorder that includes alcohol opiates Opiate use disorder chronic Plan: Admission recommendations: The patient has been hospitalized on the unit for further evaluation and treatment Therapy will be focused on providing supportive care and improving his coping abilities with a multimodal treatment Patient will also participate on the lopez activities Individual milieu group OT RT PT and pharmacotherapy Patient will be continued on his home medications at this time we will hold off on the clonazepam unless otherwise needed due to excessive sedation financial services rep on board for appropriate follow-up and placement recommendations if needed Approximate length of stay would be 7 to 10 days Patient also will be referred for substance use program including psychosocial support system like AA and NA for alcohol and substance use disorders Active Medications Generic Name Dose Route Start Last Admin Trade Name Freq PRN Reason Stop Dose Admin Acetaminophen 650 mg 06/04/24 16:39 Acetaminophen Tab 325 Mg Tab PO Q4HR PRN Mild Pain (Scale 1 to 3) Al Hydroxide/Mg Hydroxide 30 ml 06/04/24 16:39 06/04/24 18:40 Mag Hydrox/Al Hydrox/Simeth 355 Ml Bottle PO 30 ml Q4HR PRN Administration GI Upset Haloperidol 5 mg 06/04/24 16:39 Haloperidol 5 Mg Tab PO Q4HR PRN Agitation Haloperidol Lactate 5 mg 06/04/24 16:39 Haloperidol Lactate 5 Mg/Ml 1 Ml Vial IM Q6HR PRN Severe Agitation Hydroxyzine HCl 50 mg 06/04/24 16:39 Hydroxyzine Hcl 25 Mg Tab PO QID PRN Anxiety Ibuprofen 600 mg 06/04/24 16:39 Ibuprofen 600 Mg Tab PO Q6HR PRN Moderate Pain (Scale 4 to 6) Lorazepam 2 mg 06/04/24 16:39 06/04/24 21:52 Lorazepam 1 Mg Tab PO 2 mg Q4HR PRN Administration Agitation Lorazepam 2 mg 06/04/24 16:39 Lorazepam 2 Mg/Ml Inj IM Q6HR PRN Severe Agitation Magnesium Hydroxide 2,400 mg 06/04/24 16:39 Magnesium Hydroxide 2,400 Mg/30 Ml Cup PO DAILY PRN Constipation Naltrexone HCl 50 mg 06/04/24 21:00 06/04/24 20:05 Naltrexone Hcl 50 Mg Tab PO 50 mg HS HANS Administration Nicotine 1 patch 06/05/24 09:00 06/05/24 08:51 Nicotine 14mg/24hr Patch TRANSDERM 1 patch DAILY HANS Administration Objective - Vital Signs Vital signs: Vital Signs Temp 97.9 F 06/06/24 06:26 Pulse 101 H 06/06/24 06:26 Resp 16 06/06/24 06:26 BP 139/76 06/06/24 06:26 Pulse Ox 98 06/06/24 06:26 FiO2 Intake & Output 06/05/24 06/06/24 06/06/24 18:59 06:59 18:59 Weight 59.879 kg - Labs CBC & Chem 7: 06/05/24 05:53 06/05/24 05:53 Labs: Abnormal Lab Results - Last 24 Hours (Table) 06/05/24 06/05/24 Range/Units 05:53 05:53 HDL Cholesterol 67.40 H (40.00-60.00) mg/dL Free T4 2.18 H (0.80-1.80) ng/dL
[2024-06-06] MEDS: SODIUM CHLORIDE 0.9% 1,000 ML IV ONE (09:36)
[2024-06-06] MEDS: cloNIDine HCL 0.1 MG TAB PO PRN (11:55)
--- NOTE | 2024-06-07 10:11 | P.PN ---
Progress Note - Text Progress Note Date: 06/07/24 Follow-up Mediation Review Chief Complaint: I had suicidal thoughts. Subjective: The patient noted that he was having suicidal thoughts. He expressed his thoughts to his father, who brought him here. The patient noted that he started having these thoughts coming off the drugs. The patient noted that he is depressed because he was abusing Methadone for past two years. He was in [facility] in March of this year. He has stayed away from Methadone but it is making him depressed. The patient noted that he is doing small amounts of Marijuana. He is not using any other drugs. He goes to his private psychiatrist for out-pt follow-up. He is being prescribed Clonidine, Neurontin. He gets Klonopin from his PCP. He has symptoms of anxiety, sleep loss, feeling of being failure, sadness. Social isolation, loss of interest, hopelessness, and suicidal thoughts. He still has fleeting suicidal thoughts. The patient was treated for depression 5 years ago for depression. He was prescribed Klonopin, as per patient. The patient has not been attending the groups. The interaction with staff and peers is limited. The patient is compliant with treatment recommendations. Leading questions: The patient admitted to Depression and Anxiety. Admitting to fleeting SI. Denied HI. Denied symptoms consistent with psychosis Sleep and Appetite: Fair Change in family/ living/job/financial/daily routine: No change. Change in medical condition: No change. Change in medications: No change. Side effects from Medications: None. Objective- MSE: Alert and attentive. Orientation times three. Dressed and Groomed: Appropriately. Pleasant and cooperative. Psychomotor Activity: Normal. Speech: Normal in tone, quality, and quantity. Mood: Depressed and anxious. Affect: Subdued and withdrawn SI or HI: None. Perceptual disturbance: None. Thought Content: No paranoia or other delusional thinking noted. Thought Process: Normal. Cognition: Intact Judgment and Insight: Poor AIMS: Normal. Labs: No new labs. Diagnosis: No change. Plan and Recommendations: Continue current Medications. Add Zoloft 50 mg po daily. Monitor MS and side effects of medications and adjust medications accordingly. Provide supportive psychotherapy. The patient provided psychoeducation and advised The patient provided Substance abuse counseling. Smoke cessation therapy. The patient to attend lopez activities. Medication Consent with explanation of risk/benefits and side effects: Explained and obtained.
[2024-06-07] MEDS: SUCRALFATE 1 GM TAB PO SCH (16:45)
[2024-06-07] MEDS: PANTOPRAZOLE 40 MG TABLET PO SCH (16:45)
[2024-06-08 07:04] VITALS: TEMP 98.8
[2024-06-08] MEDS: SERTRALINE 50 MG TAB PO SCH (09:54)
--- NOTE | 2024-06-08 14:01 | P.PN ---
Progress Note - Text Progress Note Date: 06/08/24 Follow-up Mediation Review Chief Complaint: Why you guys giving me rat poison Subjective: The patient feels that he is getting rat poison by the pharmacy. Later, he stated that Atarax is rat poison. He stated that the hospital is being shot, "I am a failure. I am dying". He reported feeling very depressed. The patient has been noted to be quiet and withdrawn. He reported no side effects. The patient has been attending the groups. The participation is limited. The interaction with staff and peers is limited. The patient is compliant with treatment recommendations. Leading questions: The patient admitted to Depression and Anxiety. Denied SI or HI. Denied symptoms consistent with psychosis Sleep and Appetite: Fair. Change in family/ living/job/financial/daily routine: No change. Change in medical condition: No change. Change in medications: Increased Zoloft to 100 mg. Add Abilify 2 mg daily. Side effects from Medications: None. Allergies: No change. Objective- MSE: Alert and attentive. Orientation times three. Dressed and Groomed: Appropriately. Pleasant and cooperative. Psychomotor Activity: Normal. Speech: Normal in tone, quality, and quantity. Mood: Depressed and anxious. Affect: Sad, withdrawn. SI or HI: None. Perceptual disturbance: None. Thought Content: Mild paranoia and nihilism noted. no other delusional thinking noted. Thought Process: Normal. Cognition: Intact Judgment and Insight: Poor. AIMS: Normal. Labs: No new labs. Diagnosis: No change. Plan and Recommendations: Continue current Medications. Add Abilify 2 mg daily. Increase Zoloft to 100 mg daily. Monitor MS and side effects of medications and adjust medications acco rdingly. Provide supportive psychotherapy. The patient provided psychoeducation and advised The patient provided Substance abuse counseling. Smoke cessation therapy. The patient to attend lopez activities. Medication Consent with explanation of risk/benefits and side effects: Explained and obtained.
[2024-06-09 08:50] VITALS: BMI 18.6
[2024-06-09] MEDS: ARIPiprazole 2 MG TAB PO SCH (08:59)
[2024-06-09] MEDS ORDERED: DOCUSATE 100 MG CAP PO PRN (14:00)
[2024-06-09] MEDS: LORazepam 2 MG/ML INJ IM PRN (20:12)
[2024-06-09 20:15] LABS: Glucose,Whole Blood 187 mg/dL (70-110)
[2024-06-09 21:01] VITALS: BP 127/55; PULSE 120; RESP 23
[2024-06-09] MEDS: DICYCLOMINE 20 MG TAB PO PRN (21:27)
[2024-06-10] MEDS ORDERED: SERTRALINE 50 MG TAB PO SCH (09:00)
--- NOTE | 2024-06-10 13:22 | P.PN ---
Progress Note - Text Progress Note Date: 06/09/24 Follow-up Mediation Review Chief Complaint: I am the same. Subjective: The patient feels no different than yesterday. He continues to feel depressed and anxious. He has been using Ativan and Vistaril for anxiety. He remains quiet and withdrawn. He appears to be paranoid but did not voice any paranoid thoughts today. Overall, the patient is not showing any change except improvement in paranoia. He reported no side effects. The patient has been attending the groups. The participation is limited. The interaction with staff and peers is limited. The patient is compliant with treatment recommendations. Leading questions: The patient admitted to Depression and Anxiety. Denied SI or HI. Denied symptoms consistent with psychosis Sleep and Appetite: Fair. . Change in medical condition: No change. Change in medications: Increased Zoloft to 100 mg. Add Abilify 2 mg daily. Side effects from Medications: None. Objective- MSE: Alert and attentive. Orientation times three. Dressed and Groomed: Appropriately. Pleasant and cooperative. Psychomotor Activity: Decreased. Speech: Normal in tone, quality, and quantity. Mood: Depressed and anxious. Affect: Sad, withdrawn. SI or HI: None. Perceptual disturbance: None. Thought Content: No overt paranoid delusions noted. No other delusional thinking noted. Thought Process: Normal. Cognition: Intact Judgment and Insight: Poor. AIMS: Normal. Labs: No new labs. Diagnosis: No change. Plan and Recommendations: Continue current Medications. Continue Abilify 2 mg daily. Increase Zoloft to 100 mg daily. Monitor MS and side effects of medications and adjust medications accordingly. Provide supportive psychotherapy. The patient provided psychoeducation and advised The patient provided Substance abuse counseling. Smoke cessation therapy. The patient to attend lopez activities. Medication Consent with explanation of risk/benefits and side effects: Explained and obtained.
== END 2024-06-09 21:26 | disposition short-term general hospital (02) | DRG 755 ==
LOC: EC 10:48 → 3MHU 16:49
PROVIDERS: ADMIT Psychiatry & Neurology Psychiatry; ATTEND Psychiatry & Neurology Psychiatry
DX: F43.23 Adjustment disorder with mixed anxiety and depressed mood (principal); F33.9 Major depressive disorder, recurrent, unspecified; Z60.4 Social exclusion and rejection; R45.851 Suicidal ideations; J45.909 Unspecified asthma, uncomplicated; X83.8XXA Intentional self-harm by other specified means, initial encounter; F41.0 Panic disorder [episodic paroxysmal anxiety]; F17.290 Nicotine dependence, other tobacco product, uncomplicated; F11.23 Opioid dependence with withdrawal; F13.239 Sedative, hypnotic or anxiolytic dependence with withdrawal, unspecified; Z88.5 Allergy status to narcotic agent; Z71.3 Dietary counseling and surveillance; Z28.310 Unvaccinated for COVID-19; Z79.899 Other long term (current) drug therapy; Z71.51 Drug abuse counseling and surveillance of drug abuser; Z71.6 Tobacco abuse counseling
CPT/HCPCS: 80053; 80061; 80306; 81003; 82075; 82248; 83036; 84439; 84443; 85025; 87635; 93005; 99291

== ENCOUNTER 2024-06-09 21:16 | Inpatient (IN) | payer OTHER ==
--- NOTE | 2024-06-09 22:09 | CT ---
EXAMINATION TYPE: CT brain cspine wo con CT DLP: 1329.8 mGycm, Automated exposure control for dose reduction was used. DATE OF EXAM: 06/09/2024 9:51 PM COMPARISON: None. CLINICAL INDICATION:Male, 28 years old with history of fall and seizure. TECHNIQUE: Brain: Multiple axial CT images of the brain were obtained without IV contrast. Cspine: Axial CT images from the skull base to the inferior aspect of T2 we obtained without intraven ous contrast. Coronal and sagittal reformatted images were also reviewed. . FINDINGS: Brain: Extra-axial spaces: No abnormal extra-axial fluid collections. Ventricular system: Within normal limits Cerebral parenchyma: No acute intraparenchymal hemorrhage or mass effect. The joel-white junction is well differentiated. Cerebellum: Unremarkable. Mass effect: No evidence of midline shift. Intracranial vasculature: unremarkable Soft tissues: Normal. Calvarium/osseous structures: No depressed skull fracture. Paranasal sinuses and mastoid air cells: Clear. Visualized orbits: Orbital contents are intact. Cervical spine: Fracture: No acute fractures. Osseous structures: Unremarkable Vertebral alignment: Within normal limits. Spinal canal/Neural Foramina: No evidence of significant spinal canal narrowing. No evidence for sign ificant neural foraminal stenosis. Neck soft tissues: Prevertebral soft tissues are within normal limits. Other: The airway is patent. The lung apices are clear. IMPRESSION: 1. No acute intracranial process. 2. No evidence of acute cervical spine fracture.
[2024-06-09] MEDS ORDERED: NALOXONE 0.4 MG/ML 1 ML VIAL IV PRN (22:35)
[2024-06-09] MEDS ORDERED: LORazepam 1 MG TAB PO PRN ×2 (22:37)
[2024-06-09] MEDS ORDERED: LORazepam 0.5 MG TAB PO PRN (22:37)
[2024-06-10] MEDS: chlordiazePOXIDE 25 MG CAP PO SCH (00:26)
[2024-06-10] MEDS: SODIUM CHLORIDE 0.9% 1,000 ML IV STA (00:29)
[2024-06-10 00:51] LABS: Basophils % (A) 0 %; Eosinophils % (A) 0 %; HCT 47.3 % (39.0-53.0); HGB 16.2 gm/dL (13.0-17.5); Lymphocytes % (A) 4 %; MCH 31.2 pg (25.0-35.0); MCHC 34.2 g/dL (31.0-37.0); MCV 91.4 fL (80.0-100.0); Mean Platelet Volume 9.2; Monocytes # (A) 1.2 k/uL (0-1.0); Monocytes % (A) 5 %; Neutrophils # (A) 21.9 k/uL (1.3-7.7); Neutrophils % (A) 90 %; Platelet Count 252 k/uL (150-450); RBC 5.17 m/uL (4.30-5.90); RDW 12.8 % (11.5-15.5); WBC 24.2 k/uL (3.8-10.6)
[2024-06-10 01:22] LABS: ALT 20 U/L (4-49); AST 24 U/L (17-59); African American GFR (CKD) >90 (>60 ml/min/1.73 sqM); Albumin 4.8 g/dL (3.5-5.0); Alkaline Phosphatase 53 U/L (38-126); Anion Gap 9 mmol/L; Blood Urea Nitrogen 20 mg/dL (9-20); Carbon Dioxide 28 mmol/L (22-30); Chloride 106 mmol/L (98-107); Glucose 126 mg/dL (74-99); Magnesium 2.7 mg/dL (1.6-2.3); Non-African American GFR(CKD) >90 (>60 ml/min/1.73 sqM); Potassium 3.7 mmol/L (3.5-5.1); Sodium 143 mmol/L (137-145); Total Bilirubin 1.9 mg/dL (0.2-1.3); Total Protein 6.8 g/dL (6.3-8.2)
--- NOTE | 2024-06-10 02:27 | P.HPIM ---
History of Present Illness H&P Date: 06/09/24 Patient is a 28-year-old male with a PMH of substance abuse including benzodiazepines and methadone who was brought into the emergency room with complaints of depression and suicidal ideation. The patient had reported in the emergency room that he had a rapid detox from methadone with Suboxone and V ivitrol and felt ill. The patient was admitted to the mental health unit where he was previously seen for anxiety along with palpitations. The patient was started on Catapres 0.1 mg 3 times daily along with gabapentin 300 mg p.o. 3 times daily. An A-team was activated earlier today after the patient was found to be having a seizure. The nurse on the mental health unit heard a loud thud and found the patient in the hallway of the unit having a tonic-clonic seizure. The episode lasted roughly 3 minutes with the patient was cyanotic. He was seen immediately after the seizure-like episode. The patient had been given 2 mg IM Ativan. The patient was confused but mentation was gradually improving. Vitals were BP 149/100, pulse 122, SpO2 96% on room air, with temp 98 F. The patient did not recall the episode. He reported feeling weak but had no additional complaints. The patient had experienced urinary incontinence during the episode without tongue biting. Head/cervical spine CT was obtained which was negative. Laboratory evaluation was also performed with WBC count 24.2, sodium 143, potassium 3.7, glucose 126, total bilirubin 1.9, and magnesium 2.7. Laboratory evaluation from 06/05 had revealed a TSH of 0.085 with free T42.18. Review of systems: Unable to perform due to mental status Physical examination: Vital signs reviewed General: Diaphoretic male, no distress, appears at stated age, normal weight Derm: no unusual rashes/lesions, warm Head: atraumatic, normocephalic, symmetric Eyes: EOMI, no lid lag, anicteric sclera, pupils equal round reactive to light ENT: Nose and ears atraumatic Neck: No cervical lymphadenopathy, trachea midline, supple Mouth: no lip lesion, mucus membranes moist Cardiovascular: S1S2 reg, no murmur, positive dorsalis pedis pulse bilateral, no edema Lungs: CTA bilateral, no rhonchi, no rales, no accessory muscle use Abdominal: soft, nontender to palpation, no guarding Ext: muscle strength 5 out of 5 in all 4 extremities grossly, no gross muscle atrophy, no contractures, Neuro: CN II-XI grossly intact, no gross focal neuro deficits Psych: Confused, answering questions but only oriented to self and place Assessment: Tonic-clonic seizure, suspect due to benzodiazepine withdrawal Leukocytosis, likely due to acute stressor with no signs of active infection at this time Borderline hyperthyroidism Elevated total bilirubin, unclear etiology Depression with suicidal ideation and attempt Imaging: Head/cervical spine CT was obtained which was negative. Data Review: Laboratory evaluation was also performed with WBC count 24.2, sodium 143, potassium 3.7, glucose 126, total bilirubin 1.9, and magnesium 2.7. Laboratory evaluation from 06/05 had revealed a TSH of 0.085 with free T42.18. Plan: Patient initiated on Librium 25 mg p.o. 3 times daily CIWA protocol Continue with IV fluids normal saline 130 cc/h Cardiac monitoring Continue with gabapentin and clonidine Fall and seizure precautions with seizure pads Suicide precautions with sitter Patient will be discharged to the [facility] Neurology consulted Patient will need outpatient endocrinology follow-up for borderline hyperthyroidism. Will order Thyroid stimulating antibody testing for now DVT prophylaxis: Lovenox subcu The patient is admitted with an anticipated less than 2 midnight stay for evaluation of seizure CODE STATUS: Full Code Discussed with: Patient Anticipated discharge place: [facility] Past Medical History Past Medical History: Asthma History of Any Multi-Drug Resistant Organisms: None Reported Past Surgical History: No Surgical Hx Reported Past Anesthesia/Blood Transfusion Reactions: No Reported Reaction Smoking Status: Current every day smoker, Vaper - Past Family History Mother Family Medical History: Hypertension Medications and Allergies Home Medications Medication Instructions Recorded Confirmed Type Dicyclomine [Bentyl] 20 mg PO BID PRN 06/04/24 06/04/24 History Mirtazapine [Remeron] 15 mg PO HS PRN 06/04/24 06/04/24 History Naltrexone HCl [Revia] 50 mg PO HS 06/04/24 06/04/24 History Omeprazole 40 mg PO DAILY PRN 06/04/24 06/04/24 History Ondansetron Odt [Zofran Odt] 8 mg PO Q4H PRN 06/04/24 06/04/24 History Pepto-Bismol Tab 2 tab PO DIRECTED PRN MDD 16 06/04/24 06/04/24 History tabs Promethazine [Phenergan] 25 mg PO Q8H PRN 06/04/24 06/04/24 History Sucralfate [Carafate] 1 gm PO AC-BID 06/04/24 06/04/24 History clonazePAM [KlonoPIN] 1 mg PO TID PRN 06/04/24 06/04/24 History rOPINIRole HCL [Requip] 0.5 - 1 mg PO TID PRN 06/04/24 06/04/24 History Gabapentin [Neurontin] 300 mg PO TID 06/05/24 06/05/24 History Naltrexone Microspheres [Vivitrol] 380 mg IM 06/09/24 History Allergies Allergy/AdvReac Type Severity Reaction Status Date / Time codeine Allergy Rash/Hives Verified 06/04/24 13:41 Physical Exam Vitals: Vital Signs Temp Pulse Resp BP Pulse Ox 06/09/24 21:57 98 F 69 18 121/83 97 Intake and Output 06/09/24 06/09/24 06/10/24 14:59 22:59 06:59 Other: Weight 60.7 kg Results CBC & Chem 7: 06/09/24 23:50 06/09/24 23:50
[2024-06-10 07:51] LABS: HCT 42.5 % (39.0-53.0); HGB 14.4 gm/dL (13.0-17.5); MCH 30.8 pg (25.0-35.0); MCV 90.6 fL (80.0-100.0); Mean Platelet Volume 9.3; Platelet Count 238 k/uL (150-450); RBC 4.69 m/uL (4.30-5.90); RDW 12.8 % (11.5-15.5); WBC 16.6 k/uL (3.8-10.6)
[2024-06-10 08:03] LABS: African American GFR (CKD) >90 (>60 ml/min/1.73 sqM); Anion Gap 7 mmol/L; Blood Urea Nitrogen 16 mg/dL (9-20); Calcium 9.3 mg/dL (8.4-10.2); Carbon Dioxide 28 mmol/L (22-30); Chloride 107 mmol/L (98-107); Glucose 96 mg/dL (74-99); Magnesium 2.3 mg/dL (1.6-2.3); Non-African American GFR(CKD) >90 (>60 ml/min/1.73 sqM); Potassium 3.7 mmol/L (3.5-5.1); Sodium 142 mmol/L (137-145)
[2024-06-10] MEDS: MULTIVITAMINS, THERA 1 EACH TAB PO SCH (08:21)
[2024-06-10] MEDS: FOLIC ACID 1 MG TAB PO SCH (08:21)
[2024-06-10] MEDS: SUCRALFATE 1 GM TAB PO SCH (08:21)
[2024-06-10] MEDS: cloNIDine HCL 0.1 MG TAB PO SCH (08:21)
[2024-06-10] MEDS: ENOXAPARIN 40 MG/0.4 ML SYRINGE SQ SCH (08:22)
[2024-06-10] MEDS: GABAPENTIN 300 MG CAP PO SCH (08:22)
[2024-06-10 08:48] LABS: ALT 17 U/L (4-49); AST 27 U/L (17-59); Albumin 4.1 g/dL (3.5-5.0); Alkaline Phosphatase 47 U/L (38-126); Total Bilirubin 1.8 mg/dL (0.2-1.3); Total Protein 5.8 g/dL (6.3-8.2)
--- NOTE | 2024-06-10 11:32 | P.PN ---
Subjective Progress Note Date: 06/10/24 Hospital course: Patient is a 28-year-old male with a past medical history of seizure with last reoorted seizure being 6 years ago and polysubstance abuse with benzodiazepines, methadone, Suboxone, and Vivitrol. He was admitted to the hospital on 06/09/2024 after found to be having a tonic-clonic seizure on the mental health unit where he was previously admitted on 06/04/24 for detox and depression with suicidal ideations. Patient reportedly stated he underwent a rapid detox from benzodiazepines, methadone, Suboxone, and Vivitrol and per documentation in chart patient had a witnessed tonic-clonic seizure that lasted approximately 3 m inutes in which she was reported to become cyanotic requiring administration of IM Ativan and transferred to the medical unit. Vital signs were stable with blood pressure 121/83, heart rate 69, respiratory rate 18, temp 98.0 F, and SpO2 of 97% on room air. A CT brain and cervical spine was completed which was negative for acute intracranial process and showed no evidence of acute cervical spine fracture. EKG completed showing normal sinus rhythm at 82 bpm with T wave inversion in lateral lead aVL. Labs were completed and reviewed. CBC showing leukocytosis with WBC count of 24.2. BMP unremarkable with blood glucose of 126. Magnesium 2.7. And liver profile showing elevated total bili of 1.9. Patient was admitted under our services with consultation to neurology Physical exam: The patient was seen and fully evaluated at bedside. Suicide precautions remain in place with sitter at bedside continuously. Patient reports mild headache but otherwise denies having any complaints at this time. Patient asking for Klonopin stating he needs Klonopin or he is going to have another seizure, patient was informed that he is on a long-acting benzo. He denies having any dizziness, lightheadedness, changes in vision or hearing, chest pain, palpitations, or experiencing any numbness/tingling/weakness/swelling in his extremities. Patient denies biting his cheek or tongue during previous seizure and no wounds noted upon assessment. Patient has had no seizure activity since admission to hospital medical unit. Vital signs reviewed and stable. General: Nontoxic, no distress and appears stated age. Derm: Skin warm and dry, normal coloration for ethnicity. Head: Atraumatic, normocephalic and symmetric. Eyes: EOMs intact, no lid lag, and anicteric sclera Mouth: no lip lesions, mucus membranes moist Cardiovascular: regular rate and rhythm with normal S1S2, no murmur, positive posterior tibial pulses bilaterally, and cap refill < 2 seconds. Lungs: Respirations even, regular, and unlabored on room air. Lungs CTA bilaterally, no rhonchi, no rales, no wheezing, and no accessory muscle usage. Abdominal: soft, nontender to palpation, no guarding, no appreciable organomegaly Ext: ROM intact. No gross muscle atrophy, no edema, no contractures Neuro: Speech clear, face symmetrical and CN II-XII grossly intact with no noted focal neuro deficits Psych: Alert and oriented to person, place, time, and situation. Appropriate and pleasant affect. Assessment and Plan of Care: Tonic-clonic seizure, suspect secondary to withdraw however pt does report previous seizure Cytosis, no signs of infection suspect reactive from seizure activity Abnormal thyroid function testing concerning hyperthyroidism Hyperbilirubinemia -Seizure precautions, aspiration precautions, and fall precautions in place. -Neurochecks every 4 hours -Neurology consulted, appreciate recommendations. -Patient informed of [place] state law stating no driving until seizure free for 6 months. Patient also instructed to avoid climbing ladders, operating dangerous or heavy machinery or unsupervised swimming until seizure free for 6 months. -Continue Librium 25 mg p.o. 3 times daily and titrate -Continue monitoring of CIWA scores and patient to be medicated with Ativan 0.5 mg every 4 hours as needed for CIWA score of 4-5, Ativan 1 mg every 4 hours for CIWA score of 6-7, Ativan 2 mg every 3 hours CIWA score of 8-9, and Ativan 2 mg every 2 hours forr CIWA score of 10 or greater. -Continuous IV hydration. -Thiamine 100 mg daily, and Multivitamin daily, and Folate 1 mg daily -Continued close monitoring of electrolytes and replace as needed. -Telemetry monitoring. -Leukocytosis improving from 24.2 down to 16.6 this morning. -Hyperbilirubinemia also improving from 1.9 down to 1.8 this morning. -TSH was low at 0.107 with normal free T4 of 1.40. Depression with suicidal ideations -Maintain safe and supportive care with suicide precautions in place continuously. -Consult to psychiatry for management -Patient to be discharged to mental health unit once cleared from medical and ne urological perspective. Data and imaging reviewed: -EKG completed and personally reviewed and interpreted showing normal sinus rhythm at 82 bpm with T wave inversion in lateral lead aVL. -Vital signs reviewed. Blood pressure 132/64, heart rate 84, respiratory rate 17, temp 98.9 F, and SpO2 of 98% on room air. -Morning labs reviewed. CBC showing significant improvement of leukocytosis from previous 24.2 down to 16.6 this morning. BMP unremarkable. Liver profile showing slight improvement of hyperbilirubinemia with bilirubin decreasing to 1.8. Repeat labs show low TSH of 0.107 with normal free T4 of 1.40. CODE STATUS: Full code DVT prophylaxis: Lovenox Anticipated discharge date: Likely 24 to [address]: Return to mental health unit Patient was seen independently by Nurse Pracitioner. This document was prepared using [employer] dictation software. Please allow for errors in merchandise flow manager, while rare they do occur. Jeffrey Lakhani [employer]EST TECH[employer]OLOGY PROFESSOR rendered care for this patient independently, reviewed the findings and plan as documented in the note above. I did not physically speak with or examine the patient on this date. Objective - Vital Signs Vital signs: Vital Signs Temp 98.4 F 06/10/24 03:33 Pulse 86 06/10/24 03:33 Resp 14 06/10/24 03:33 BP 108/65 06/10/24 03:33 Pulse Ox 97 06/10/24 03:33 FiO2 Intake & Output 06/09/24 06/10/24 06/10/24 18:59 06:59 18:59 Weight 129 kg Other: Voiding Method Urinal # Voids 1 - Labs CBC & Chem 7: 06/10/24 06:53 06/10/24 07:29 Labs: Abnormal Lab Results - Last 24 Hours (Table) 06/09/24 06/09/24 06/10/24 Range/Units 23:50 23:50 06:53 WBC 24.2 H 16.6 H (3.8-10.6) k/uL Neutrophils # 21.9 H (1.3-7.7) k/uL Monocytes # 1.2 H (0-1.0) k/uL Glucose 126 H (74-99) mg/dL Magnesium 2.7 H (1.6-2.3) mg/dL Total Bilirubin 1.9 H (0.2-1.3) mg/dL
[2024-06-10] MEDS: lamoTRIgine 25 MG TAB PO SCH (13:31)
--- NOTE | 2024-06-10 13:42 | P.CNNES ---
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 Patient states he takes Klonopin 1 mg every 8 hours and he did not feel he relayed that message correctly and as a result he was not on Klonopin while and then to inpatient psychiatry. Seems that the patient had rapid detox from methadone or Suboxone and Vivitrol and felt well. Patient was started on Catapres along with gabapentin. It seems while he was inpatient psychiatry yesterday he had seizure-like activity with tonic-clonic seizure that reported. The episode lasted for 3 minutes and the patient was cyanotic per documentation and the patient was given Ativan 2 mg with improvement in the condition. Patient does not recall the episode. He denies recalling what transpired. Denies any auras prior to the episode. Again as stated earlier he states that he is on benzos and he did not relay that message to the psychiatry team and was not on benzos his Klonopin dose 1 mg 3 times daily. He does state that he had seizures from withdrawal to benzos. He also states he has a history of epileptic seizure and had seizure at the age of 35 years old. He states he had EEGs in the past and it was reported normal as well as MRI of the brain. Was told that he had normal Thought he is on valproic acid but I am unsure. He does not know exactly the medication he is on currently in general for his entire condition. Upon checking his medication list he is not on valproic acid at home.. He states th at may be followed up with a neurologist once in the past but does not recall the details. Denies any alcohol use. Some of the workup during this hospital visit consisted of: Patient is afebrile Initial white blood cell is 24,000 and the repeat is 16,000 Calcium is 10, magnesium 2.7 repeated magnesium is normal, AST ALT is normal. TSH is 0.107 while the free T4 is 1.40, sodium is 143 and the serum glucose on presentation in our facility was 126 CT of the head is reported as no acute intracranial process. She reviewed the CT and I agree there is no acute or subacute process. CT cervical spine is reported as no evidence of acute cervical spine fracture. Review of Systems The positive and negative as per HPI. Past Medical History Past Medical History: Asthma History of Any Multi-Drug Resistant Organisms: None Reported Past Surgical History: No Surgical Hx Reported Past Anesthesia/Blood Transfusion Reactions: No Reported Reaction Smoking Status: Current every day smoker, Vaper - Past Family History Mother Family Medical History: Hypertension Medications and Allergies Home Medications Medication Instructions Recorded Confirmed Type Dicyclomine [Bentyl] 20 mg PO BID PRN 06/04/24 06/10/24 History Mirtazapine [Remeron] 15 mg PO HS PRN 06/04/24 06/10/24 History Naltrexone HCl [Revia] 50 mg PO HS 06/04/24 06/10/24 History Omeprazole 40 mg PO DAILY PRN 06/04/24 06/10/24 History Ondansetron Odt [Zofran Odt] 8 mg PO Q4H PRN 06/04/24 06/10/24 History Pepto-Bismol Tab 2 tab PO DIRECTED PRN MDD 16 06/04/24 06/10/24 History tabs Promethazine [Phenergan] 25 mg PO Q8H PRN 06/04/24 06/10/24 History Sucralfate [Carafate] 1 gm PO AC-BID 06/04/24 06/10/24 History clonazePAM [KlonoPIN] 1 mg PO TID PRN 06/04/24 06/10/24 History rOPINIRole HCL [Requip] 0.5 - 1 mg PO TID PRN 06/04/24 06/10/24 History Gabapentin [Neurontin] 300 mg PO TID 06/05/24 06/10/24 History Naltrexone Microspheres [Vivitrol] 380 mg IM 06/09/24 History Allergies Allergy/AdvReac Type Severity Reaction Status Date / Time codeine Allergy Rash/Hives Verified 06/04/24 13:41 Physical Examination - Vital Signs Vital Signs: Vital Signs Temp Pulse Resp BP Pulse Ox 06/10/24 11:25 81 18 129/72 95 06/10/24 08:20 98.9 F 84 17 132/64 98 06/10/24 03:33 98.4 F 86 14 108/65 97 06/10/24 00:28 98.2 F 100 14 119/74 96 06/09/24 21:57 98 F 69 18 121/83 97 Intake and Output 06/09/24 06/10/24 06/10/24 22:59 06:59 14:59 Intake Total 222 Balance 222 Intake: Oral 222 Other: Voiding Method Urinal Urinal # Voids 1 1 Weight 60.7 kg 129 kg GENERAL: The patient is lying in bed and is not in acute distress. NEUROLOGICAL: Higher mental function: The patient is mildly drowsy but is awakeable to voice, oriented to self, place and time. Patient is following commands. No aphasia and no neglect. Cranial nerves: The pupils are round, equal and reactive to light and accommodation. Visual santiago are full to confrontation throughout. Extraocular movement is intact no nystagmus is noted. Facial sensation is normal to touch throughout. The facial strength is normal throughout. Hearing is normal bilat erally to hand rub. Tongue is midline and moved [id number] without any difficulty. No dysarthria is noted. Shoulder shrug is normal bilaterally. Motor: The strength is 5 over 5 throughout. Normal tone and bulk. Cerebellum: Normal finger to nose heel to chin bilaterally. Sensation: Sensation is normal to touch throughout. Reflexes (right/left): 2+ Plantars are downgoing bilaterally. Results - Laboratory Findings CBC and BMP: 06/10/24 06:53 06/10/24 07:29 Abnormal Lab Findings: Abnormal Labs 06/09/24 06/09/24 06/10/24 23:50 23:50 06:53 WBC 24.2 H 16.6 H Neutrophils # 21.9 H Monocytes # 1.2 H Creatinine Glucose 126 H Magnesium 2.7 H Total Bilirubin 1.9 H Total Protein TSH 06/10/24 07:29 WBC Neutrophils # Monocytes # Creatinine 0.63 L Glucose Magnesium Total Bilirubin 1.8 H Total Protein 5.8 L TSH 0.107 L Assessment and Plan Assessment: This is a 28-year-old gentleman with history of seizure epileptic and due to benzo withdrawal, depression, polysubstance abuse initially presented to the emergency department on 06/04/2024 for suicidal ideation and plan and was admitted to inpatient psychiatry. The patient was not resumed on his Klonopin his home dose 1 tablet 3 times daily and patient stated that he he probably did not relay that message and that yesterday while in the inpatient psychiatry he had a seizure-like activity. Patient is not on any antiepileptic drug. Patient does not recall the details of his seizures in the past but states when he was 5 years old he was told he had epileptic seizure. He states that he had an EEG and MRI in the past and was told normal. Breakthrough seizure likely due benzo withdrawal. Also patient has a history of epileptic seizure so there is increased risk for seizure and that could have provoked this is seizure as well History of seizure epileptic since 5 years old as well as benzo withdrawal eusebia campo is not on any antiepileptic drugs Suicidal ideation and plan History of polysubstance (opiates as well as benzos) Depression Plan: I started the patient on Lamictal since it can help with his seizure as well as mood. It is a slow titration and started on 25 mg daily and every week to add an additional 25mg until 100 mg twice a day (1st week 25mg daily, 2nd week 25mg bid, 3rd week 50mg qam and 25mg qhs, 4th week 50mg bid etc until 100mg bid). Patient does not want to be on Depakote because of the side effects of the medication. Commend avoiding Keppra if possible because of the side effects of the mood and behavioral especially with the patient's psychiatric issues Seizure precautions seizure pads I ordered a routine EEG Patient was notified because of seizures, to avoid driving for 6 months until seizure-free, avoid heights, avoid swimming unassistant and or avoid heavy machinery Recommend the patient to follow-up with a neurologist as an outpatient within 2 weeks for further evaluation and seizures Will defer the rest of the medical management to primary and other specialist The plan is discussed with patient and primary team N.P. Thank you for the consultation. Time with Patient: Greater than 30
--- NOTE | 2024-06-10 16:14 | P.CN ---
Psychiatric Consult - . Consult date: 06/10/24 Consult:: 06/10/24 16:11 CONSULTATION Reason for consult: Depression identifying Data: The patient is a 28 years old, single white male, who lives in [place], [place]. Reason for admission: Seizure disorder The patient was transferred to the medical floor for management of Grand mal seizures on . The patient was initially admitted to [facility] for Depression on 06/05/2024. History of Psychiatric Illness: He reported that after a rapid detox from methadone about 2 weeks ago he has had constant frontal headache associated mild blurry vision, chest pain and shortness of breath. He also reports abdominal discomfort with poor bowel movements but denies urinary issues. He is also complaining of generalized malaise with pain in multiple joints both upper and lower extremities. Also reports mild lower back pain which is from 5 to 6 years, not getting worse. He has tried pain medication such as Tylenol and is mildly effective. He states that he has a long history of mental illness with several psychiatric hospitalizations in the past he states that he was detoxed from the methadone and that he has a history of using OxyContin and other tablets of opiates Drug and Alcohol Abuse: Alcohol abuse, Opioid abuse, Marijuana abuse. Past Medical History: Asthma, Seizure disorder Patient has a history of seizure and his last episode was 6 years ago. Patient states that he was given lorazepam in the hospital and that he has a history of seizures. He was drug seeking and focused on getting Klonopin. MSE: Alert and attentive Orientation X2. Pleasant and cooperative. Psychomotor activity: Normal. Speech: Normal tone, quality, and quantity Mood: Depressed and anxious. Affect: Anxious and perplexed. SI or HI: None Thought content: Normal Thought process: Normal Perceptual disturbance: Normal Cognition: Mildly confused. 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 REC: The patient needs in-patient psychiatric admission. Transfer patient to psychiatric in-patient unit after medical stabilization. The patient psychiatric medications to be reinstated after medical stabilization.
[2024-06-10] MEDS: PANTOPRAZOLE 40 MG TABLET PO PRN (18:08)
--- NOTE | 2024-06-10 20:58 | EEG ---
ELECTROENCEPHALOGRAM REPORT CLINICAL HISTORY: This is a 28-year-old gentleman with history of seizure, who had seizure-like activity on 06/09/2024. The video EEG is obtained to evaluate for seizure epileptiform activity. RELEVANT MEDICATIONS: 1. Ativan. 2. Librium. 3. Gabapentin. EEG TYPE: A routine 21-channel EEG with video using the 10/20 electrode placement system. DESCRIPTION: Wakefulness and drowsiness are obtained. During awake state, the posterior- dominant rhythm consists of [id number] voltage of 9 to 10 hertz activity that is well modulated and well sustained. There is no physiological stage 2 sleep architecture. There is no focal slowing. There is diffuse excessive beta activity. Interictal and ictal is none. ACTIVATION PROCEDURE: Photic stimulation and hyperventilation are not performed. CLINICAL INTERPRETATION: This is an abnormal routine EEG. The background is normal. There is no focal slowing, epileptiform discharge, or seizure on the EEG. The excessive beta activity is likely due to medication-induced (Benzodiazepine). Clinical correlation is recommended. TONG / CHRISTIE: [id number] / [id number]
[2024-06-11] MEDS: LORazepam 1 MG TAB PO PRN (00:12)
[2024-06-11] MEDS: THIAMINE 100 MG TAB PO SCH (08:52)
--- NOTE | 2024-06-11 09:26 | P.DS ---
Providers Date of admission: 06/09/24 21:25 Expected date of discharge: 06/11/24 Attending physician: Lolis Russell MD Consults: 06/10/24 03:21 Consult Physician Urgent Consulting Provider: Gerson Anderson Consult Reason/Comments: seizure, suspected benzo withdrawal Do you want consulting provider notified?: Yes 06/10/24 07:36 Consult Physician Routine Consulting Provider: Salvador Pickens Consult Reason/Comments: pt from [facility] had seizure & transferred to medical unit pls follow for psychi Do you want consulting provider notified?: Already Contacted Primary care physician: Jermaine Torres MD Hospital Course: Discharge Diagnosis: Tonic-clonic seizure, suspect secondary to withdraw however pt does report previous seizures. Neurologist evaluated and started patient on Lamictal 25 mg daily recommending tapering upwards by 25 mg weekly until patient reaches recommended dose of 100 mg twice daily. Leukocytosis, no signs of infection suspect reactive from seizure activity Abnormal thyroid function testing concerning hyperthyroidism. Repeat testing showing TSH was low at 0.107 with normal free T4 of 1.40. no need for further intervention at this time. Recommend repeat thyroid testing in 6-12 weeks. Hyperbilirubinemia Depression with suicidal ideations Patient being discharged back to mental health unit for inpatient psychiatric care. Hospital course: Patient is a 28-year-old male with a past medical history of seizure with last reoorted seizure being 6 years ago and polysubstance abuse with benzodiazepines, methadone, Suboxone, and Vivitrol. He was admitted to the hospital on 06/09/2024 after found to be having a tonic-clonic seizure on the mental health unit where he was previously admitted on 06/04/24 for detox and depression with suicidal ideations. Patient reportedly stated he underwent a rapid detox from benzodiazepines, methadone, Suboxone, and Vivitrol and per documentation in chart patient had a witnessed tonic-clonic seizure that lasted approximately 3 minutes in which she was reported to become cyanotic requiring administration of IM Ativan and transferred to the medical unit. Vital signs were stable with blood pressure 121/83, heart rate 69, respiratory rate 18, temp 98.0 F, and SpO2 of 97% on room air. A CT brain and cervical spine was completed which was negative for acute intracranial process and showed no evidence of acute cervical spine fracture. EKG completed showing normal sinus rhythm at 82 bpm with T wave inversion in lateral lead aVL. Labs were completed and reviewed. CBC showing leukocytosis with WBC count of 24.2. BMP unremarkable with blood glucose of 126. Magnesium 2.7. And liver profile showing elevated total bili of 1.9. Patient was admitted under our services with consultation to neurology. EEG was completed showing an abnormal routine EEG with no focal slowing, epileptiform discharge, or seizure on EEG however excess beta activity was seen and possibly secondary to medication induced benzodiazepines. Repeat labs completedCBC showing significant improvement of leukocytosis from previous 24.2 down to 16.6. BMP unremarkable. Liver profile showing slight improvement of hyperbilirubinemia with bilirubin decreasing to 1.8. TSH was low at 0.107 with normal free T4 of 1.40. Neurologist evaluated and started patient on Lamictal 25 mg daily recommending tapering upwards by 25 mg weekly until patient reaches recommended dose of 100 mg twice daily. Patient underwent a T9 hospitalization with no further signs of seizure activity. He is medically stable at this time and cleared from neurology standpoint as well. Patient being discharged back to mental health unit. Patient to follow up outpatient with PCP and neurologist after discharge from inpatient psychiatric unit. Physical exam: The patient was seen and fully evaluated at bedside. Suicide precautions remain in place with sitter at bedside continuously. Patient reports mild headache but otherwise denies having any complaints at this time. Patient asking for Klonopin stating he needs Klonopin or he is going to have another seizure, patient was informed that he is on a long-acting benzo. He denies having any dizziness, lightheadedness, changes in vision or hearing, chest pain, palpitations, or experiencing any numbness/tingling/weakness/swelling in his extremities. Patient denies biting his cheek or tongue during previous seizure and no wounds noted upon assessment. Patient has had no seizure activity since admission to hospital medical unit. Vital signs reviewed and stable. General: Nontoxic, no distress and appears stated age. Derm: Skin warm and dry, normal coloration for ethnicity. Head: Atraumatic, normocephalic and symmetric. Eyes: EOMs intact, no lid lag, and anicteric sclera Mouth: no lip lesions, mucus membranes moist Cardiovascular: regular rate and rhythm with normal S1S2, no murmur, positive posterior tibial pulses bilaterally, and cap refill < 2 seconds. Lungs: Respirations even, regular, and unlabored on room air. Lungs CTA bilaterally, no rhonchi, no rales, no wheezing, and no accessory muscle usage. Abdominal: soft, nontender to palpation, no guarding, no appreciable organomegaly Ext: ROM intact. No gross muscle atrophy, no edema, no contractures Neuro: Speech clear, face symmetrical and CN II-XII grossly intact with no noted focal neuro deficits Psych: Alert and oriented to person, place, time, and situation. Appropriate and pleasant affect. A total of 33 minutes of time were spent preparing this complex discharge summary. Pt was discharged on 06/11/24 at 8:42 AM. Patient was seen independently by Nurse Practitioner. This document was prepared using [employer] dictation software. Please allow for errors in hot cell technician while rare they do occur. Jeffrey Lakhani NP rendered care for this patient independently, reviewed the findings and plan as documented in the note above. I did not physically speak with or examine the patient on this date. Patient Condition at Discharge: Stable Plan - Discharge Summary New Discharge Prescriptions: New lamoTRIgine [LaMICtal] 25 mg PO DAILY tab No Action Sucralfate [Carafate] 1 gm PO AC-BID Mirtazapine [Remeron] 15 mg PO HS PRN PRN Reason: Insomnia Omeprazole 40 mg PO DAILY PRN PRN Reason: acid reflux Promethazine [Phenergan] 25 mg PO Q8H PRN PRN Reason: Nausea And Vomiting Ondansetron Odt [Zofran Odt] 8 mg PO Q4H PRN PRN Reason: ABDOMINAL PAIN/CRAMPING rOPINIRole HCL [Requip] 0.5 - 1 mg PO TID PRN PRN Reason: restless legs Naltrexone HCl [Revia] 50 mg PO HS Dicyclomine [Bentyl] 20 mg PO BID PRN PRN Reason: GI UPSET/DISTRESS clonazePAM [KlonoPIN] 1 mg PO TID PRN PRN Reason: Anxiety Pepto-Bismol Tab 2 tab PO DIRECTED PRN MDD 16 tabs PRN Reason: Diarrhea Gabapentin [Neurontin] 300 mg PO TID Naltrexone Microspheres [Vivitrol] 380 mg IM Discharge Medication List Dicyclomine [Bentyl] 20 mg PO BID PRN 06/04/24 [History] Mirtazapine [Remeron] 15 mg PO HS PRN 06/04/24 [History] Naltrexone HCl [Revia] 50 mg PO HS 06/04/24 [History] Omeprazole 40 mg PO DAILY PRN 06/04/24 [History] Ondansetron Odt [Zofran Odt] 8 mg PO Q4H PRN 06/04/24 [History] Pepto-Bismol Tab 2 tab PO DIRECTED PRN MDD 16 tabs 06/04/24 [History] Promethazine [Phenergan] 25 mg PO Q8H PRN 06/04/24 [History] Sucralfate [Carafate] 1 gm PO AC-BID 06/04/24 [History] clonazePAM [KlonoPIN] 1 mg PO TID PRN 06/04/24 [History] rOPINIRole HCL [Requip] 0.5 - 1 mg PO TID PRN 06/04/24 [History] Gabapentin [Neurontin] 300 mg PO TID 06/05/24 [History] Naltrexone Microspheres [Vivitrol] 380 mg IM 06/09/24 [History] lamoTRIgine [LaMICtal] 25 mg PO DAILY tab 06/11/24 [Rx] Follow up Appointment(s)/Referral(s): Dr Sanchez [Other] - 06/18/24 1:00 pm (06/18 @ 13:00) Marilia Bosch III, MD [STAFF PHYSICIAN] - 1 Week Citlalli Lawson MD [REFERRING] - 1 Week Patient Instructions/Handouts: Seizure/Epilepsy Discharge Instructions & Follow-Up, Medical Clearance for Psychiatric Care (GEN) Activity/Diet/Wound Care/Special Instructions: [place] state law stating no driving until seizure free for 6 months. Patient also instructed to avoid climbing ladders, operating dangerous or heavy machinery or unsupervised swimming until seizure free for 6 months. Neurologist evaluated and started patient on Lamictal 25 mg daily recommending tapering upwards by 25 mg weekly until patient reaches recommended dose of 100 mg twice daily. Pt is medically and neurologically cleared to return to Inpatient Mental Health/Psychiatric unit. . Discharge Disposition: TRANSFER TO PSYCH HOSP/UNIT
--- NOTE | 2024-06-11 11:24 | P.PN ---
Subjective Progress Note Date: 06/11/24 I am following-up with patient and no further seizures. He feels he is about the same and denies of any headache, focal weakness, or any new neurological issues. Objective - Vital Signs Vital signs: Vital Signs Temp 98 F 06/11/24 08:00 Pulse 79 06/11/24 08:00 Resp 18 06/11/24 08:00 BP 120/70 06/11/24 08:00 Pulse Ox 98 06/11/24 08:00 FiO2 Intake & Output 06/10/24 06/11/24 06/11/24 18:59 06:59 18:59 Intake Total 962 Balance 962 Intake: Oral 962 Other: Voiding Method Urinal Urinal # Voids 2 2 - Exam GENERAL: The patient is lying in bed and is not in acute distress. NEUROLOGICAL: Higher mental function: The patient was initially sleeping upon seeing him. He is oriented to self, place and time. Patient is following commands. No aphasia and no neglect. Cranial nerves: The pupils are round, equal and reactive to light and accommodation. Visual santiago are full to confrontation throughout. Extraocular movement is intact no nystagmus is noted. Facial sensation is normal to touch throughout. The facial strength is normal throughout. Hearing is normal bilaterally to hand rub. Tongue is midline and moved [id number] without any difficulty. No dysarthria is noted. Shoulder shrug is normal bilaterally. Motor: The strength is 5 over 5 throughout. Normal tone and bulk. Cerebellum: Normal finger to nose heel to chin bilaterally. Sensation: Sensation is normal to touch throughout. Reflexes (right/left): 2+ Plantars are downgoing bilaterally. Some of the workup during this hospital visit consisted of: Patient is afebrile Initial white blood cell is 24,000 and the repeat is 16,000 Calcium is 10, magnesium 2.7 repeated magnesium is normal, AST ALT is normal. TSH is 0.107 while the free T4 is 1.40, sodium is 143 and the serum glucose on presentation in our facility was 126 CT of the head is reported as no acute intracranial process. She reviewed the CT and I agree there is no acute or subacute process. CT cervical spine is reported as no evidence of acute cervical spine fracture. Routine EEG: Is abnormal. The background is normal. There is no focal slowing, epileptiform discharges or seizure on the EEG. The excessive beta activity is likely due to medication induced (Benzo). 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 The patient was not resumed on his Klonopin his home dose 1 tablet 3 times daily and patient stated that he he probably did not relay that message and that yesterday while in the inpatient psychiatry he had a seizure-like activity. Patient is not on any antiepileptic drug. Patient does not recall the details of his seizures in the past but states when he was 5 years old he was told he had epileptic seizure. He states that he had an EEG and MRI in the past and was told normal. Breakthrough seizure likely due benzo withdrawal. Also patient has a history of epileptic seizure so there is increased risk for seizure and that could have provoked this is seizure as well--No further seizures for >24 hours. Routine EEG is negative for seizure or discharges. History of seizure epileptic since 5 years old as well as benzo withdrawal patient is not on any antiepileptic drugs Suicidal ideation and plan History of polysubstance (opiates as well as benzos) Depression Plan: I started the patient on Lamictal since it can help with his seizure as well as mood. It is a slow titration and started on 25 mg daily and every week to add an additional 25mg until 100 mg twice a day (1st week 25mg daily, 2nd week 25mg bid, 3rd week 50mg qam and 25mg qhs, 4th week 50mg bid etc until 100mg bid). I notified the patient of side-effects of skin rash/Ever Matt syndrome with Lamictal. If he has rash to stop medication immediately and seek medical attention. Patient does not want to be on Depakote because of the side effects of the medication. Commend avoiding Keppra if possible because of the side effects of the mood and behavioral especially with the patient's psychiatric issues Seizure precautions seizure pads Recommend a repeat routine EEG or prolonged EEG as outpatient and that can be coordinated by his neurologist. Patient was notified because of seizures, to avoid driving for 6 months until seizure-free, avoid heights, avoid swimming unassistant and or avoid heavy machinery Recommend the patient to follow-up with a neurologist as an outpatient within 2 weeks for further evaluation and seizures Will defer the rest of the medical management to primary and other specialist The plan is discussed with patient and primary team N.P. There is no further neurological work-up. Will sign off. Please reconsult if needed. Time with Patient: Less than 30
[2024-06-11] MEDS: ACETAMINOPHEN TAB 325 MG TAB PO PRN (17:31)
[2024-06-11 19:52] VITALS: BP 99/69; PULSE 82; RESP 16; TEMP 97.3
== END 2024-06-11 20:42 | DRG 53 ==
LOC: 3SCARD 21:25 → UNDODISIN 06-11 19:56
PROVIDERS: ADMIT Internal Medicine; ATTEND Internal Medicine
PROC: HZ2ZZZZ Detoxification Services for Substance Abuse Treatment (ICD-10-PCS; 2024-06-09)
PROC: 4A10X4Z Monitoring of Central Nervous Electrical Activity, External Approach (ICD-10-PCS; principal; 2024-06-10)
DX: G40.409 Other generalized epilepsy and epileptic syndromes, not intractable, without status epilepticus (principal); F13.239 Sedative, hypnotic or anxiolytic dependence with withdrawal, unspecified; R45.851 Suicidal ideations; F32.A Depression, unspecified; F12.10 Cannabis abuse, uncomplicated; F10.10 Alcohol abuse, uncomplicated; F11.10 Opioid abuse, uncomplicated; E05.90 Thyrotoxicosis, unspecified without thyrotoxic crisis or storm; D72.829 Elevated white blood cell count, unspecified; F17.290 Nicotine dependence, other tobacco product, uncomplicated; J45.909 Unspecified asthma, uncomplicated; R17 Unspecified jaundice; R32 Unspecified urinary incontinence; Z79.899 Other long term (current) drug therapy; Z82.49 Family history of ischemic heart disease and other diseases of the circulatory system; Z71.6 Tobacco abuse counseling; Z71.51 Drug abuse counseling and surveillance of drug abuser; Z88.5 Allergy status to narcotic agent
CPT/HCPCS: 70450; 72125; 80053; 83735; 84439; 84443; 85025; 85027; 87635; 95819

== ENCOUNTER 2024-06-11 20:04 | Inpatient (IN) | payer MEDICAID ==
[2024-06-11] MEDS ORDERED: HALOPERIDOL LACTATE 5 MG/ML 1 ML VIAL IM PRN (20:19)
[2024-06-11] MEDS ORDERED: traZODone HCL 50 MG TAB PO PRN (20:19)
[2024-06-11] MEDS ORDERED: MAG HYDROX/AL HYDROX/SIMETH 355 ML BOTTLE PO PRN (20:19)
[2024-06-11] MEDS ORDERED: IBUPROFEN 600 MG TAB PO PRN (20:19)
[2024-06-11] MEDS ORDERED: MIRTAZAPINE 15 MG TAB PO PRN (20:27)
[2024-06-11] MEDS ORDERED: DICYCLOMINE 20 MG TAB PO PRN (20:27)
[2024-06-11] MEDS ORDERED: ONDANSETRON ODT 8 MG TAB.RAPDIS PO PRN (20:27)
[2024-06-11] MEDS: GABAPENTIN 300 MG CAP PO SCH (22:09)
[2024-06-11] MEDS: NALTREXONE HCL 50 MG TAB PO SCH (22:09)
[2024-06-12] MEDS: lamoTRIgine 25 MG TAB PO SCH (09:26)
[2024-06-12] MEDS: NICOTINE 14MG/24HR PATCH TRANSDERM SCH (09:26)
[2024-06-12] MEDS: SUCRALFATE 1 GM TAB PO SCH (09:26)
--- NOTE | 2024-06-12 16:03 | P.PN ---
Progress Note - Text Interval History: Returned from medical floor yesterday. He had been transferred for seizure and he is now stabilized on lamictal. Patient was seen in his room. At this time patient denies any suicidal or homicidal ideations, intent or plan. Patient denies any auditory, visual hallucinations and denies any paranoia or delusions.Also denies cravings. MENTAL STATUS EXAM: General Appearance: Patient appears to be stated age, thin, wearing glasses, wearing street clothes. Patient appears to have adequate hygiene and grooming Behavior: Patient is standing without any agitated behavior, paranoid. Speech: Patient's speech is fluent and non-pressured. talkative, rambling. Mood/Affect: Patient reports their mood is "irritated", affect is congruent Suicidality/Homicidality: Patient denies having any homicidal ideation intent or plan. Denies any suicidal ideation, intent or plan. Perceptions: Patient denies any visual hallucinations and denies any auditory hallucinations. Though content/process: rambles, illogical at times. paranoia. hesitant Memory and concentration: AOX3, grossly intact for the purposes of this session. Judgment and insight: poor Assessment: MDD Plan: zoloft 50 mg daily, naltrexone 50 mg daily
[2024-06-13] MEDS: LORazepam 1 MG TAB PO PRN (01:29)
[2024-06-13] MEDS: SERTRALINE 50 MG TAB PO SCH (09:08)
[2024-06-13] MEDS: LORazepam 2 MG/ML INJ IM PRN (11:01)
--- NOTE | 2024-06-13 14:39 | P.PN ---
Progress Note - Text Interval history: patient states "I don't feel safe here" states that people have been threatening him, and threatening to stab his eyes. States that there was someone outside his room with a knife. When asked about SI, patient responds "maybe" At this time patient denies any homicidal ideations intent or plan. Denies any Auditory or visual hallucinations. Patient denies any side effects from the medications and has been compliant with meds. Mental status exam: General Appearance: [Patient appears to be eeventstated age is alert, directable, and cooperative.] Behavior: [No agitated behavior. Speech: Patient's speech is fluent and nonpressured. Mood/Affect: Mood is "hopeless", affect is congruent and constricted. Suicidality/Homicidality: Patient denies having any suicidal or homicidal ideation intent or plan. Perceptions: Patient denies any auditory or visual hallucinations. Though content/process: paranoid delusions present Memory and concentration: AOX3, grossly intact for the purposes of this session Judgment and insight: ppoor Assessment/Plan: Continue with current diagnosis. Patient continues to meet criteria for inpatient psychiatric admission for symptom stabilization and safety. continue to monitor the paranoia. [Increase zoloft to 100 mg daily. continue naltrexone 50 mg daily] Monitor for medication compliance and for any psychotropic medication side effects. Will continue to monitor ongoing response to treatment. Encouraged participation in milieu.
[2024-06-14] MEDS: SERTRALINE 100 MG TAB PO SCH (07:52)
--- NOTE | 2024-06-14 15:25 | P.PN ---
Progress Note - Text Progress Note Date: 06/14/24 Follow-up Mediation Review Chief Complaint: Am I in trouble Subjective: The patient stated that people on the lopez are calling him bitch and trying to harm him. He also stated that his food is being tampered and his fork and knife are open. He feels there is a conspiracy to harm him. He hears voices of patient and other people on the [place] telling him bad things. He does not believe anything is wrong with him. He has signed to leave AMA. His father called, with consent of him I spoke with him. The father expressed concern about patient paranoid thoughts. The patient has been telling him the same paranoid thoughts, He also acknowledge his earlier paranoia before seizures on 06/09/24. He stated that the patient has never been the same after getting Ketamine treatment and Naloxone injection. He was given Ketamine and Naltrexone at the rehab. center end of last month. He mentioned no history of paranoia. The patient also mentioned feeling not right since he got the Ketamine. The patient has been noted to be quiet and withdrawn. He reported no side effects. He is compliant with medications. Discussed with patient and father starting patient of Zyprexa. Explained risk/ benefits and side effects. The patient understood and consented. The patient has been attending the groups. The participation is limited. The interaction with staff and peers is limited. The patient is compliant with treatment recommendations. Leading questions: The patient admitted to Depression and Anxiety. Denied SI or HI. Denied symptoms consistent with psychosis Sleep and Appetite: Fair. Change in family/ living/job/financial/daily routine: No change. Change in medical condition: No change. Change in medications: Add Zyprexa 2.5 mg po qhs. Increase Zoloft to 150 mg po daily. Side effects from Medications: None. Allergies: No change. Objective- MSE: Alert and attentive. Orientation times three. Dressed and Groomed: Appropriately. Pleasant and cooperative. Psychomotor Activity: Normal. Speech: Normal in tone, quality, and quantity. Mood: Depressed and anxious. Affect: Sad, withdrawn. SI or HI: None. Perceptual disturbance: None. Thought Content: The patient exhibiting paranoid delusions. No other delusional thinking noted. Thought Process: Normal. Cognition: Intact Judgment and Insight: Poor. AIMS: Normal. Labs: No new labs. Diagnosis: No change. Plan and Recommendations: Continue current Medications. Added Zyprexa 2.5 mg hs. Monitor MS and side effects of medications and adjust medications accordingly. Provide supportive psychotherapy. The patient provided psychoeducation and advised The patient provided Substance abuse counseling. Smoke cessation therapy. The patient to attend lopez activities. Medication Consent with explanation of risk/benefits and side effects: Explained and obtained.
[2024-06-14] MEDS: MAGNESIUM HYDROXIDE 2,400 MG/30 ML CUP PO PRN (16:47)
[2024-06-14] MEDS: OLANZapine 2.5 MG TAB PO SCH (20:26)
[2024-06-15] MEDS: SERTRALINE 100 MG TAB PO SCH (08:31)
[2024-06-15] MEDS: OLANZapine 5 MG TAB PO SCH (20:48)
[2024-06-15] MEDS: lamoTRIgine 25 MG TAB PO SCH (20:48)
[2024-06-16] MEDS: chlordiazePOXIDE 25 MG CAP PO STA (12:21)
--- NOTE | 2024-06-16 15:51 | P.PN ---
Progress Note - Text Progress Note Date: 06/16/24 Follow-up Mediation Review Chief Complaint: I feeling better Subjective: The patient stated that people on the [place] are acting up. He noted being stressed. He stated that there were people around his room screaming and banging. He was scared. The patient talked about attending the groups. Hi father called this morning and stated that the patient is still paranoid. The staff on the unit reported that the patient has been making paranoid statement. Discussed with patient about increasing the dose of Zyprexa and adding Librium because of inadequate coverage with Lamictal at this time due slow titration. The patient is diligent in looking for the rash. He has not noticed any. The patient encouraged to continue doing it. The patient understood and agreed. Explained risk/ benefits and side effects. The patient understood and consented. The patient has been attending the groups. The participation is limited. The interaction with staff and peers is limited. The patient is compliant with treatment recommendations. Leading questions: The patient admitted to Depression and Anxiety. Denied SI or HI. Denied symptoms consistent with psychosis Sleep and Appetite: Fair. Change in family/ living/job/financial/daily routine: No change. Change in medical condition: No change. Change in medications: Add Zyprexa 7.5 mg po qhs. Add Librium 25 mg po tid. Side effects from Medications: None. Allergies: No change. Objective- MSE: Alert and attentive. Orientation times three. Dressed and Groomed: Appropriately. Pleasant and cooperative. Psychomotor Activity: Normal. Speech: Normal in tone, quality, and quantity. Mood: Depressed and anxious. Affect: Consistent with depression. SI or HI: None. Perceptual disturbance: None. Thought Content: The patient mild paranoid delusions. No other delusional thinking noted. Thought Process: Normal. Cognition: Intact Judgment and Insight: Poor. AIMS: Normal. Labs: No new labs. Diagnosis: No change. Plan and Recommendations: Continue current Medications. Increase Zyprexa to 7.5 mg hs. Add Librium 25 mg po tid. Monitor MS and side effects of medications and adjust medications accordingly. Provide supportive psychotherapy. The patient provided psychoeducation and advised The patient provided Substance abuse counseling. Smoke cessation therapy. The patient to attend lopez activities. Medication Consent with explanation of risk/benefits and side effects: Explained and obtained.
[2024-06-16] MEDS: chlordiazePOXIDE 25 MG CAP PO SCH (16:02)
[2024-06-16] MEDS: OLANZapine 7.5 MG TAB PO SCH (20:41)
--- NOTE | 2024-06-17 14:07 | P.PN ---
Progress Note - Text Progress Note Date: 06/17/24 Follow-up Mediation Review Chief Complaint: I am fine Subjective: The patient did not bring up any paranoid thoughts on his own. When he was asked if there was anyone banging or screaming at his room last night, the patient stated no. He is not being bothered by other patients or staff anymore. He knows that the lopez can be loud and disruptive sometimes but none of is directed towards him. He reported sleeping well last night. No side effects from medications reported. The patient understood and consented. The patient has been attending the groups. The participation is limited. The interaction with staff and peers is limited. The patient is compliant with treatment recommendations. Leading questions: The patient admitted to Depression and Anxiety. Denied SI or HI. Denied symptoms consistent with psychosis Sleep and Appetite: Fair. Change in family/ living/job/financial/daily routine: No change. Change in medical condition: No change. Change in medications: no change. Side effects from Medications: None. Allergies: No change. Objective- MSE: Alert and attentive. Orientation times three. Dressed and Groomed: Appropriately. Pleasant and cooperative. Psychomotor Activity: Normal. Speech: Normal in tone, quality, and quantity. Mood: Depressed and anxious. Affect: Consistent with depression. SI or HI: None. Perceptual disturbance: None. Thought Content: The patient mild paranoid delusions. No other delusional thinking noted. Thought Process: Normal. Cognition: Intact Judgment and Insight: Poor. AIMS: Normal. Labs: No new labs. Diagnosis: No change. Plan and Recommendations: Continue current Medications. Monitor MS and side effects of medications and adjust medications accordingly. Provide supportive psychotherapy. The patient provided psychoeducation and advised The patient provided Substance abuse counseling. Smoke cessation therapy. The patient to attend lopez activities. Medication Consent with explanation of risk/benefits and side effects: Explained and obtained.
[2024-06-17] MEDS: ACETAMINOPHEN TAB 325 MG TAB PO PRN (19:45)
[2024-06-18 06:44] LABS: Glucose,Whole Blood 111 mg/dL (70-110)
[2024-06-18] MEDS: PANTOPRAZOLE 40 MG TABLET PO PRN (07:08)
[2024-06-18] MEDS: polyethylene glycoL 3350 17 GM POWD.PACK PO SCH (09:28)
[2024-06-18] MEDS: ONDANSETRON ODT 8 MG TAB.RAPDIS PO PRN (09:29)
[2024-06-18] MEDS ORDERED: ONDANSETRON ODT 8 MG TAB.RAPDIS PO PRN (10:11)
--- NOTE | 2024-06-18 16:08 | P.CONS ---
History of Present Illness - Reason for Consult Consult date: 06/18/24 - History of Present Illness 29 year old M with PMH of GERD, RLS presents to the ED for mental health concerns. [facility] has been consulted for medical management of this patient. POC glucose 111. Current vital signs BP 120/85, HR 115, T 97.5F, 96% on RA. Patient reports constipation for the last 7-8 days. Last BM was this morning, small. He reports difficulty with emptying his bladder for 3-4 days. Weak stream. Non drinker. Vapes. Marijuana abuse. General: non toxic, no distress, appears at stated age, flat affect Derm: warm, dry Head: atraumatic, normocephalic, symmetric Eyes: EOMI, no lid lag, anicteric sclera Mouth: no lip lesion, mucus membranes moist Cardiovascular: S1S2 reg, no murmur Lungs: CTA bilateral, no rhonchi, no rales , no accessory muscle use Abd: Mild tenderness to palpation in all 4 quadrants without rebound Ext: no gross muscle atrophy, no edema, no contractures Neuro: CN II-XII grossly intact. No focal neurologic deficits. Based on my assessment of this patient, this patient meets a moderate complexity level of care. Constipation: Status post Milk of Mag and Miralax today. Trial of Lactulose tomorrow if this doesnt help. Other options discussed including suppository and enema. Urinary retention: Bladder scan ordered. GERD: Protonix 40 mg PO QD PRN for acid reflux. Carafate 1g PO BID. RLS: Requip 0.5 mg PO TID PRN for restless legs. CODE STATUS: FULL CODE DVT Prophylaxis: Early ambulation. GI Prophylaxis: Protonix PO. I have reviewed the following funeral pre need consultant notes: Psyc note. I have reviewed the results of the following tests: As above. I have ordered the following tests: I have discussed the care of this patient with the following independent historian: I have independently interpreted the following test below: I have discussed the management of this patient with the following physician: I have seen and evaluated the patient today along side the resident. Past Medical History Past Medical History: Asthma History of Any Multi-Drug Resistant Organisms: None Reported Past Surgical History: Ear Surgery Additional Past Surgical History / Comment(s): Left ear tube surgery. Past Anesthesia/Blood Transfusion Reactions: No Reported Reaction Smoking Status: Vaper - Past Family History Mother Family Medical History: No Reported History, Hypertension Medications and Allergies Home Medications Medication Instructions Recorded Confirmed Type Dicyclomine [Bentyl] 20 mg PO BID PRN 06/04/24 06/11/24 History Mirtazapine [Remeron] 15 mg PO HS PRN 06/04/24 06/11/24 History Naltrexone HCl [Revia] 50 mg PO HS 06/04/24 06/11/24 History Omeprazole 40 mg PO DAILY PRN 06/04/24 06/11/24 History Ondansetron Odt [Zofran Odt] 8 mg PO Q4H PRN 06/04/24 06/11/24 History Pepto-Bismol Tab 2 tab PO DIRECTED PRN MDD 16 06/04/24 06/11/24 History tabs Promethazine [Phenergan] 25 mg PO Q8H PRN 06/04/24 06/11/24 History Sucralfate [Carafate] 1 gm PO AC-BID 06/04/24 06/11/24 History clonazePAM [KlonoPIN] 1 mg PO TID PRN 06/04/24 06/11/24 History rOPINIRole HCL [Requip] 0.5 - 1 mg PO TID PRN 06/04/24 06/11/24 History Gabapentin [Neurontin] 300 mg PO TID 06/05/24 06/11/24 History Naltrexone Microspheres [Vivitrol] 380 mg IM 06/09/24 History lamoTRIgine [LaMICtal] 25 mg PO DAILY tab 06/11/24 06/11/24 Rx Allergies Allergy/AdvReac Type Severity Reaction Status Date / Time codeine Allergy Rash/Hives Verified 06/11/24 20:36 Physical Exam Vitals: Vital Signs Temp Pulse Resp BP BP Pulse Ox 06/18/24 09:35 115 H 18 120/85 96 06/18/24 06:53 16 108/71 06/18/24 06:00 97.5 F L 77 16 120/82 98 Results Labs: Abnormal Lab Results - Last 24 Hours (Table) 06/18/24 Range/Units 06:40 POC Glucose (mg/dL) 111 H (70-110) mg/dL
--- NOTE | 2024-06-18 17:09 | P.PN ---
Progress Note - Text Progress Note Date: 06/18/24 Follow-up Mediation Review Chief Complaint: I passed out this morning. Subjective: The patient noted that he became dizzy and then passed out this morning. The nursing staff indicated that he felt dizzy but did not pass out or fall. His blood pressure was normal. The patient was gently redirected and reassured. He also complaint of severe constipation. He reported to the medica doctor on the case. The patient denied any paranoid thoughts today. He noted that mentally he is feeling fine. No side effects from medications reported. The patient understood and consented. The patient has been attending the groups. The participation is good.. The interaction with staff and peers is good.. The patient is compliant with treatment recommendations. Leading questions: The patient admitted to Depression and Anxiety. Denied SI or HI. Denied symptoms consistent with psychosis Sleep and Appetite: Fair. Change in family/ living/job/financial/daily routine: No change. Change in medical condition: No change. Change in medications: no change. Side effects from Medications: None. Allergies: No change. Objective- MSE: Alert and attentive. Orientation times three. Dressed and Groomed: Appropriately. Pleasant and cooperative. Psychomotor Activity: Normal. Speech: Normal in tone, quality, and quantity. Mood: Depressed and anxious. Affect: Consistent with depression. SI or HI: None. Perceptual disturbance: None. Thought Content: The patient mild paranoid delusions. No other delusional thinking noted. Thought Process: Normal. Cognition: Intact Judgment and Insight: Fair. AIMS: Normal. Labs: No new labs. Diagnosis: No change. Plan and Recommendations: Continue current Medications. Monitor MS and side effects of medications and adjust medications accordingly. Provide supportive psychotherapy. The patient provided psychoeducation and advised The patient provided Substance abuse counseling. Smoke cessation therapy. The patient to attend lopez activities. Medication Consent with explanation of risk/benefits and side effects: Explained and obtained.
[2024-06-18] MEDS: haloperidoL 5 MG TAB PO PRN (20:14)
[2024-06-18] MEDS: chlordiazePOXIDE 25 MG CAP PO SCH (20:15)
--- NOTE | 2024-06-19 08:06 | P.CNNES ---
History of Present Illness Consult date: 06/18/24 Requesting physician: Salvador Pickens Reason for Consult: Med evaluation/seizure prevention History of Present Illness: Patient is a 29-year-old male with history of benzodiazepine withdrawal seizures, currently admitted in the mental health unit for anxiety, depression with suicidal ideation, had a syncopal episode today. Patient states that he has severe constipation and has tried prune juice and milk of magnesia without improvement. Today he was pushing really hard, and he backed out. He believes that it was not a seizure. This prompted neurology consultation. This episode appears vasovagal in nature. Patient says that he has history of seizure when he was a young baby. He does not know any details, if he was treated with seizure medications are not. Since age 22, he has had some seizures, which are all related to benzodiazepine withdrawal. He never had a seizure in any other situations besides benzo withdrawal. He has over years tried Klonopin and Xanax. Any time he is out of these medications, he gets a seizure. At present patient appears somewhat paranoid, saying "I'm but it for life", as he believes that people threatened him that they repeat him up. He states people think that he is stupid. He refers to everyone in this lopez. He states everyone is frustrated with him, "no groups meeting going on". He believes his last seizure was about few years ago. Patient was seen by Dr. Anderson on 06/10/2024 for seizure, suspected benzo withdrawal. Patient has history of polysubstance abuse, depression, suicide attempt. It was reported that patient was taking Klonopin 1 mg every 8 hours and he stopped taking it while he was inpatient psychiatry. This was not relayed to the staff and was not started on Klonopin, therefore resulted in the seizure, which was generalized tonic clonic, lasted for [address] Anderson started patient on Lamictal. Patient had a rapid detox from methadone or Suboxone and Vivitrol and felt well. Patient lives with his father, has one brother. Patient denies any alcohol use. He weights, smokes marijuana and used to take methadone in the past. He used to work as a security. Review of Systems All completely negative except for anxiety, depression, constipation. All other pertinent positive and negative reviewed in HPI. Past Medical History Past Medical History: Asthma History of Any Multi-Drug Resistant Organisms: None Reported Past Surgical History: Ear Surgery Additional Past Surgical History / Comment(s): Left ear tube surgery. Past Anesthesia/Blood Transfusion Reactions: No Reported Reaction Smoking Status: Vaper - Past Family History Mother Family Medical History: No Reported History, Hypertension Medications and Allergies Home Medications Medication Instructions Recorded Confirmed Type Dicyclomine [Bentyl] 20 mg PO BID PRN 06/04/24 06/11/24 History Mirtazapine [Remeron] 15 mg PO HS PRN 06/04/24 06/11/24 History Naltrexone HCl [Revia] 50 mg PO HS 06/04/24 06/11/24 History Omeprazole 40 mg PO DAILY PRN 06/04/24 06/11/24 History Ondansetron Odt [Zofran Odt] 8 mg PO Q4H PRN 06/04/24 06/11/24 History Pepto-Bismol Tab 2 tab PO DIRECTED PRN MDD 16 06/04/24 06/11/24 History tabs Promethazine [Phenergan] 25 mg PO Q8H PRN 06/04/24 06/11/24 History Sucralfate [Carafate] 1 gm PO AC-BID 06/04/24 06/11/24 History clonazePAM [KlonoPIN] 1 mg PO TID PRN 06/04/24 06/11/24 History rOPINIRole HCL [Requip] 0.5 - 1 mg PO TID PRN 06/04/24 06/11/24 History Gabapentin [Neurontin] 300 mg PO TID 06/05/24 06/11/24 History Naltrexone Microspheres [Vivitrol] 380 mg IM 06/09/24 History lamoTRIgine [LaMICtal] 25 mg PO DAILY tab 06/11/24 06/11/24 Rx Allergies Allergy/AdvReac Type Severity Reaction Status Date / Time codeine Allergy Rash/Hives Verified 06/11/24 20:36 Physical Examination - Vital Signs Vital Signs: Vital Signs Temp Pulse Resp BP BP Pulse Ox 06/18/24 09:35 115 H 18 120/85 96 06/18/24 06:53 16 108/71 06/18/24 06:00 97.5 F L 77 16 120/82 98 Patient is a young male, in no acute distress. Patient is alert awake oriented to time place and person. Speech and language functions are normal. Patient can name and repeat very well. No aphasia or dysarthria. Attention, concentration and fund of knowledge is adequate. On cranial nerve examination, pupils are equal, round and reacting to light, visual santiago are full on confrontation, with no neglect on double simultaneous stimulation. Extraocular muscles are intact with no nystagmus. Face is symmetric, tongue protrudes to the midline. Palatal elevation and sensation normal, hearing and shoulder shrug normal, facial sensation normal. On muscle strength testing, there is no pronator drift and the strength is normal in arms and legs distally and proximally. Deep tendon reflexes are symmetric 2+ all over and plantars downgoing. Sensory to touch is equal with no neglect on double simultaneous stimulation. Cerebellar function showed no ataxia for [id number] testing. No dysdiadochokinesia. No ataxia for [id number] testing on either side. Tone and bulk of muscles normal. Gait deferred.. On general examination, there is no carotid bruit or murmur, S1-S2 audible. Chest is clear on consultation. Abdomen is soft nontender. No organomegaly, bowel sounds present. Peripheral pulses are present. No peripheral edema. Patient has a slight papular rash over the left shoulder region. I do not see any rash anywhere else besides the left shoulder. Does not appear Lamictal rash. Results - Laboratory Findings Abnormal Lab Findings: Abnormal Labs 06/18/24 06:40 POC Glucose (mg/dL) 111 H Assessment and Plan Assessment: * Syncopal spell today while straining for bowel movement, likely vasovagal episode. Patient is severely constipated. * History of benzodiazepine withdrawal seizure. * Anxiety, depression * History of suicide thoughts. * History of polysubstance abuse Plan: * Patient's current episode was vasovagal in nature. Treatment to relieve constipation as per IM. Excessive straining resulted in vasovagal syncope. * Patient is currently on Lamictal 25 mg twice a day. He has noticed some rash over the last shoulder, which does not appear Lamictal rash. We will observe it. Patient informed to let staff know, if the rash progresses. In that case Lamictal may have to be stopped. After one week, the dose can be increased to 50 mg twice a day. He is on Lamictal to help with the mood stabilization, as his seizures are only benzodiazepine withdrawal, which does not really need treatment with antiepileptic medication. * Patient had an EEG done 06/10/2024 which was borderline abnormal because of excessive fast frequency beta activity, related to benzodiazepine effect. No epileptiform activity was seen. * Patient has somewhat brisk reflexes. We will check B12, folate, RPR. TSH is low 0.107 with normal free T4 1.40. We will defer to IM. * No other workup indicated. * Thank you for the consult. Addendum: B12 843 Folate 8.70. We will start folic acid 1 mg daily. RPR nonreactive.
[2024-06-19] MEDS: FOLIC ACID 1 MG TAB PO SCH (08:28)
--- NOTE | 2024-06-19 15:59 | P.PN ---
Progress Note - Text Progress Note Date: 06/19/24 Interval history: Patient was seen in the hallways and was directable and agreeable to speak with mortgage underwriter. Patient has numerous questions he wishes to ask. He says that he has been feeling constipated despite being on Maalox and taking prune juice. He was comfortable with being added on Dulcolax when necessary. He says that his mood has been "very bad ". He reports this is largely because he feels he is more anxious and would like to be resumed back on Klonopin. However, following his seizure, he has been on Librium to prevent withdrawal. He states that he has hypersomnia and is agreeable with being discontinued off of Remeron when necessary. Patient received ordered Ativan today as needed for anxiety. At this time patient denies any suicidal or homicidal ideations intent or plan. Denies any Auditory or visual hallucinations. Patient denies any side effects from the medications and has been compliant with meds. No rashes consistent with SJS but has acne on L shoulder. Mental status exam: General Appearance: Patient appears to be stated age is alert, directable, and cooperative. Behavior: No agitated behavior. Patient is calm and directable Speech: Patient's speech is fluent and nonpressured. Mood/Affect: Mood is anxious, affect is congruent and constricted. Suicidality/Homicidality: Patient denies having any suicidal or homicidal ideation intent or plan. Perceptions: Patient denies any auditory or visual hallucinations. Though content/process: There is no evidence of any delusional thought content and thought process is linear and goal-directed. Focused on Klonopin Memory and concentration: AOX3, grossly intact for the purposes of this session Judgment and insight: improving mildly Assessment/Plan: Continue with current diagnosis. Patient continues to meet criteria for inpatient psychiatric admission for symptom stabilization and safety. Patient will be maintained on current psychotropic medication regimen. Monitor for medication compliance and for any psychotropic medication side effects, including SJS. Will continue to monitor ongoing response to treatment. Encouraged participation in milieu.
[2024-06-19] MEDS: LORazepam 1 MG TAB PO PRN (20:48)
[2024-06-20 07:23] VITALS: TEMP 97.7
--- NOTE | 2024-06-20 14:24 | P.PN ---
Progress Note - Text Progress Note Date: 06/20/24 Interval history: Patient was seen in the hallways and was directable and agreeable to speak with bond writer. Patient states that his mood has been "okay ". He is appearing more future oriented and states that he would like to go home and spend time with his family. However, he endorses noticing that he is more tired with current medication regimen. He is agreeable with the decrease in gabapentin and Zyprexa. Patient denies any symptoms consistent with withdrawal today. He continues to report constipation has not received a when necessary medication for that. He denies other concerns and reports good sleep last night. He endorses good appetite today. He denies any rash concerns worsening today. At this time patient denies any suicidal or homicidal ideations intent or plan. Denies any Auditory or visual hallucinations. Patient denies any side effects from the medications and has been compliant with meds. No rashes consistent with SJS but has acne on L shoulder. Mental status exam: General Appearance: Patient appears to be stated age is alert, directable, and cooperative. 3-4 1 mm x 1 mm lesions visible on the left proximal upper extremity that are consistent with acne that are not worsening. Behavior: No agitated behavior. Patient is calm and directable Speech: Patient's speech is fluent and nonpressured. Mood/Affect: Mood is anxious, affect is congruent and constricted. Suicidality/Homicidality: Patient denies having any suicidal or homicidal ideation intent or plan. Perceptions: Patient denies any auditory or visual hallucinations. Though content/process: There is no evidence of any delusional thought content and thought process is linear and goal-directed. Memory and concentration: AOX3, grossly intact for the purposes of this session Judgment and insight: improving mildly Assessment/Plan: Continue with current diagnosis. Patient continues to meet criteria for inpatient psychiatric admission for symptom stabilization and safety. Patient will be maintained on current psychotropic medication regimen. Decrease Zyprexa to 5 mg qHS and decrease Neurontin to 300 mg BID for mood stabilization due to daytime sedation. Monitor for medication compliance and for any psychotropic medication side effects, including SJS. Will continue to monitor ongoing response to treatment. Encouraged participation in milieu.
[2024-06-20] MEDS: bisacodyL 5 MG TABLET.DR PO PRN (14:57)
[2024-06-20] MEDS: OLANZapine 5 MG TAB PO SCH (20:14)
[2024-06-20] MEDS: GABAPENTIN 300 MG CAP PO SCH (20:14)
--- NOTE | 2024-06-21 01:28 | P.PN ---
Subjective Progress Note Date: 06/20/24 Patient was seen for a follow-up. Patient is feeling much better. He denies any worsening of the rash. Objective - Vital Signs Vital signs: Vital Signs Temp 97.7 F 06/20/24 06:53 Pulse 104 H 06/20/24 09:54 Resp 14 06/20/24 06:53 BP 130/87 06/20/24 09:54 Pulse Ox 98 06/20/24 06:53 FiO2 Intake & Output 06/19/24 06/20/24 06/20/24 18:59 06:59 18:59 Weight 62.8 kg - Exam Mentation normal. Strength normal. The rash over the left shoulder appears to be stable, not any worse. No perceived rash anywhere else on the torso or the extremities. Examination is nonfocal. Gait normal. Assessment and Plan Assessment: * Syncopal spell while straining for bowel movement, likely vasovagal episode. Patient is severely constipated. * History of benzodiazepine withdrawal seizure. * Anxiety, depression * History of suicide thoughts. * History of polysubstance abuse Plan: * Patient's current episode was vasovagal in nature. Treatment to relieve constipation as per IM. Excessive straining resulted in vasovagal syncope. * Patient is currently on Lamictal 25 mg twice a day. He has noticed some rash over the last shoulder, which does not appear Lamictal rash. It is stable, likely not related to Lamictal. Patient informed to let staff know, if the rash progresses. In that case Lamictal may have to be stopped. After one week, the dose can be increased to 50 mg twice a day (if indicated from psychiatry standpoint). He is on Lamictal to help with the mood stabilization, as his seizures are only benzodiazepine withdrawal, which does not really need treatment with antiepileptic medication. * B12 843 * Folate 8.70. We will start folic acid 1 mg daily. * RPR nonreactive. * Patient had an EEG done 06/10/2024 which was borderline abnormal because of excessive fast frequency beta activity, related to benzodiazepine effect. No epileptiform activity was seen. * No other workup indicated. We will sign off. Please reconsult neurology if any other concerns.
[2024-06-21 07:10] VITALS: BP 110/76; PULSE 88; RESP 16
[2024-06-21 09:54] VITALS: BMI 19.8
--- NOTE | 2024-06-21 14:02 | P.DS ---
Providers Date of admission: 06/11/24 20:43 Expected date of discharge: 06/21/24 Attending physician: Salvador Pickens MD Consults: 06/18/24 14:38 Consult Physician Routine Consulting Provider: Neurology Coverage Consult Reason/Comments: Med evaluation/seizure prevention Do you want consulting provider notified?: Yes Primary care physician: Stated None - Discharge Diagnosis(es) (1) Major depressive disorder, recurrent episode, severe Current Visit: Yes Status: Acute Priority: High (2) Polysubstance abuse Current Visit: Yes Status: Acute Priority: High (3) Seizure disorder Current Visit: Yes Status: Acute Priority: Medium Hospital Course: Discharge Summary HPI: This is a psychiatric assessment on this 28-year-old male who was hospitalized after patient presents to the ER with suicidal ideations Following exam except from the assessment done in the ER: Patient is a 28-year-old male with a history of psychiatric disorder is seen for medical evaluation. Patient states that he had a rapid detox from methadone about 2 weeks ago and ever since then has had constant frontal headache associated mild blurry vision, chest pain and shortness of breath. He also reports abdominal discomfort with poor bowel movements but denies urinary issues. He is also complaining of generalized malaise with pain in multiple joints both upper and lower extremities. Also reports mild lower back pain which is from 5 to 6 years, not getting worse. He has tried pain medication such as Tylenol and is mildly effective. Patient has a history of seizure and his last episode was 6 years ago. Patient denies history of CVA and or CVA. Patient denies history of COPD or asthma. When seen today patient seems to be mainly focused on wanting to get his clonazepam Patient states that he was given lorazepam in the hospital and that he has a history of seizures Patient also complains of anxiety although he seems to be sedated with droopy eyelids and difficulty maintaining alertness Patient remains drug seeking He states that he has a long history of mental illness with several psychiatric hospitalizations in the past he states that he was detoxed from the methadone and that he has a history of using OxyContin and other tablets of opiates He states that he is unemployed and he currently lives with his family He admits that he was hospitalized due to suicidal ideations He states that he is currently unemployed He admits that he uses some alcohol as well as cannabis on a regular basis Past Medical History: Asthma History of Any Multi-Drug Resistant Organisms: None Reported Past Surgical History: No Surgical Hx Reported Past Psychological History: Anxiety, Depression, Panic Disorder Smoking Status: Current every day smoker, Vaper Past Alcohol Use History: None Reported Past Drug Use History: Marijuana Hospital Course: After admission, the patient was involved in pharmacotherapy, lopez milieu, and individual psychodynamic psychotherapy. The patient was started The patient was started on Trazodone, Zoloft, Remeron, and Neurontin. He was on basic protocol of admission medications including CIWAA protocol. He was transferred to medical floor for Seizures and transferred back after stabilization. He displayed some residual paranoia and was placed on Zyprexa. His was also given Librium 25 mg po tid, which was tapered off. The dose was titrated to obtain the desire effects. The patient tolerated medications well without any side effects. The patient was also involved in lopez activities. The patient attended the groups and participated well. The patient interacted with peers and staff well. The patient slowly started showing improvement. The hospital course was uneventful. The patient symptoms of depression, suicidal and homicidal ideations abated. The psychosis improved. The patient was stable to be discharged to out-patient care. The patient did not have any guns or weapons in possession at home. MSE: Behavior: cooperative, calm Patient however seems to be struggling to maintain alertness He showed psychomotor slowness Speech: fluent, clear, impoverished Perception: no hallucinations Cognition: alert, oriented to situation, oriented to time, oriented to place, oriented to person, memory intact, poor concentration and attention span Intelligence: average Memory: remote, recent Mood: euthymic Insight: Impaired Judgment: Impaired Thought Processes: [place] but goal directed Thought Content: Drug seeking Diagnosis: Adjustment disorder with mixed emotional features Major depressive disorder recurrent with acute exacerbation Polysubstance use disorder that includes alcohol opiates Opiate use disorder chronic Plan: The patient to be discharged today. The patient has attained good improvement since admission. He is stable to be followed as an outpatient. The patient is not suicidal or Homicidal. He does not pose any harm to self or others. The patient remains at a greater risk of self-harm or harm to others than general population on a chronic basis due to psychiatric illness and substance abuse. The patient will continue taking following medication post discharge. The importance of medication compliance and maintaining regular appointments at psychiatric out-pt and PCP clinic was explained and encouraged. The patient was also advised to seek alcohol counseling and attend AA/NA meetings. The understood and agreed with the recommendations. hospital food service worker to arrange for and conduct family meeting to ensure safety upon discharge and answer any questions. The social work supervisor to arrange for patients follow-up appointments at [facility] for psychiatric care along with follow-up with PCP. The patient provided psychoeducation. Advised to call 911 or go to nearest ED or call this hospital in case of acute worsening of symptomatology, severe side effects or having suicidal, homicidal thoughts and feeling unsafe at home. Patient Condition at Discharge: Stable Plan - Discharge Summary Discharge Rx Participant: No New Discharge Prescriptions: New traZODone HCL [Desyrel] 50 mg PO HS PRN 15 Days #15 tab PRN Reason: Insomnia Folic Acid 1 mg PO DAILY tab Sertraline [Zoloft] 150 mg PO DAILY 15 Days #15 tab OLANZapine [ZyPREXA] 5 mg PO HS 15 Days #15 tab bisacodyL [Dulcolax] 5 mg PO DAILY PRN #0 tab PRN Reason: Constipation Continue Sucralfate [Carafate] 1 gm PO AC-BID Omeprazole 40 mg PO DAILY PRN PRN Reason: acid reflux Mirtazapine [Remeron] 15 mg PO HS PRN 15 Days #15 tab PRN Reason: Insomnia Ondansetron Odt [Zofran ODT] 8 mg PO Q4H PRN PRN Reason: ABDOMINAL PAIN/CRAMPING rOPINIRole HCL [Requip] 0.5 - 1 mg PO TID PRN PRN Reason: restless legs Naltrexone HCl [Revia] 50 mg PO HS Dicyclomine [Bentyl] 20 mg PO BID PRN PRN Reason: GI UPSET/DISTRESS clonazePAM [KlonoPIN] 1 mg PO TID PRN PRN Reason: Anxiety Gabapentin [Neurontin] 300 mg PO TID Naltrexone Microspheres [Vivitrol] 380 mg IM Changed lamoTRIgine [LaMICtal] 25 mg PO BID 15 Days #30 tab Discontinued Promethazine [Phenergan] 25 mg PO Q8H PRN PRN Reason: Nausea And Vomiting Pepto-Bismol Tab 2 tab PO DIRECTED PRN MDD 16 tabs PRN Reason: Diarrhea Discharge Medication List Dicyclomine [Bentyl] 20 mg PO BID PRN 06/04/24 [History] Naltrexone HCl [Revia] 50 mg PO HS 06/04/24 [History] Omeprazole 40 mg PO DAILY PRN 06/04/24 [History] Ondansetron Odt [Zofran ODT] 8 mg PO Q4H PRN 06/04/24 [History] Sucralfate [Carafate] 1 gm PO AC-BID 06/04/24 [History] clonazePAM [KlonoPIN] 1 mg PO TID PRN 06/04/24 [History] rOPINIRole HCL [Requip] 0.5 - 1 mg PO TID PRN 06/04/24 [History] Gabapentin [Neurontin] 300 mg PO TID 06/05/24 [History] Naltrexone Microspheres [Vivitrol] 380 mg IM 06/09/24 [History] Folic Acid 1 mg PO DAILY tab 06/21/24 [Rx] Mirtazapine [Remeron] 15 mg PO HS PRN 15 Days #15 tab 06/21/24 [Rx] OLANZapine [ZyPREXA] 5 mg PO HS 15 Days #15 tab 06/21/24 [Rx] Sertraline [Zoloft] 150 mg PO DAILY 15 Days #15 tab 06/21/24 [Rx] bisacodyL [Dulcolax] 5 mg PO DAILY PRN #0 tab 06/21/24 [Rx] lamoTRIgine [LaMICtal] 25 mg PO BID 15 Days #30 tab 06/21/24 [Rx] traZODone HCL [Desyrel] 50 mg PO HS PRN 15 Days #15 tab 06/21/24 [Rx] Follow up Appointment(s)/Referral(s): Dr Evon [Other] - 06/23/24 7:00 pm (Left messsage to callback ) Dr Brian [Other] - 1 Week Patient Instructions/Handouts: Depression (DC) Activity/Diet/Wound Care/Special Instructions: Avoid the use of street drugs and alcohol. Take all medications as prescribed. When you are in need of refills on your medications, please contact your outpatient medical provider and/or outpatient psychiatrist. Please go to your scheduled outpatient appointments for aftercare treatment. If symptoms return or become worse, call the crisis line at or and/or visit the nearest emergency room for assistance. National Suicide and Crisis Lifeline - call or text 988. Discharge Disposition: HOME SELF-CARE
== END 2024-06-21 14:27 | disposition home or self-care (01) | DRG 751 ==
LOC: UNDOADMIN 20:04 → 3MHU 20:04
PROVIDERS: ADMIT Psychiatry & Neurology Psychiatry; ATTEND Psychiatry & Neurology Psychiatry
DX: F33.2 Major depressive disorder, recurrent severe without psychotic features (principal); F43.23 Adjustment disorder with mixed anxiety and depressed mood; G25.81 Restless legs syndrome; G40.909 Epilepsy, unspecified, not intractable, without status epilepticus; G47.10 Hypersomnia, unspecified; F10.10 Alcohol abuse, uncomplicated; J45.909 Unspecified asthma, uncomplicated; K59.00 Constipation, unspecified; R45.851 Suicidal ideations; F17.290 Nicotine dependence, other tobacco product, uncomplicated; F12.10 Cannabis abuse, uncomplicated; F11.10 Opioid abuse, uncomplicated; Z76.5 Malingerer [conscious simulation]; Z56.0 Unemployment, unspecified; F22 Delusional disorders; Z79.899 Other long term (current) drug therapy; Z71.41 Alcohol abuse counseling and surveillance of alcoholic; Z71.51 Drug abuse counseling and surveillance of drug abuser; Z28.310 Unvaccinated for COVID-19; Z28.21 Immunization not carried out because of patient refusal
CPT/HCPCS: 82607; 82746; 86780